=== PATIENT | female | born 1970 | race African-American/Black ===

== ENCOUNTER → 2020-04-24 09:02 | Outpatient (BNVA) | payer OTHER, SELFPAY | PROVIDERS: Visit Provider Internal Medicine Gastroenterology | DX: Z76.89 Persons encountering health services in other specified circumstances (principal) ==

== ENCOUNTER 2020-05-18 08:00 | Outpatient (REF) | payer OTHER, SELFPAY ==
[2020-05-23 19:21] LABS: HPV mRNA E6/E7 rflx Not Detected (Not Detected)
== END 2020-05-18 08:01 | disposition home or self-care (01) ==
LOC: HO.LAB 08:00
PROVIDERS: PCP Internal Medicine; Referring Provider Internal Medicine; Visit Provider Obstetrics & Gynecology
DX: Z01.419 Encounter for gynecological examination (general) (routine) without abnormal findings (principal); Z78.0 Asymptomatic menopausal state; Z13.820 Encounter for screening for osteoporosis
CPT/HCPCS: 87624; 87625; 88142

== ENCOUNTER 2020-05-19 08:02 | Outpatient (REF) | payer OTHER, SELFPAY ==
--- NOTE | 2020-05-19 08:08 | MM_ITS ---
EXAMINATION: MM SCREENING DIGITAL BREAST TOMOSYNTHESIS, BILATERAL CLINICAL INFORMATION: Screening. Asymptomatic. The lifetime risk of breast cancer based on the Tyrer-Cuzick Model is 5%. COMPARISON: Mammography: 10/30/2018, 10/24/2017 TECHNIQUE: Digital breast tomosynthesis is performed in both the craniocaudal and mediolateral oblique views along with computer-aided detection (CAD). Synthesized 2D images are generated from the tomosynthesis. FINDINGS: There are scattered areas of fibroglandular density (ACR BI-RADS breast composition Category b). Composition borders on heterogeneously dense. The parenchymal pattern is similar to prior studies. There is no significant mass or architectural abnormality. Again, there are numerous bilateral diffuse scattered punctate calcifications in each breast. The axilla and skin contours are unremarkable. No significant changes. MM/MM tomosynthesis screening BI IMPRESSION: No significant changes from prior studies. ASSESSMENT: BI-RADS 2: Benign RECOMMENDATION: Routine annual mammography screening. This patient's information was entered into a reminder system with a target due date for their next mammogram.
== END 2020-05-19 08:03 | disposition home or self-care (01) ==
LOC: HO.MAMMO 08:02
PROVIDERS: PCP Internal Medicine; Visit Provider Internal Medicine
DX: Z12.31 Encounter for screening mammogram for malignant neoplasm of breast (principal)
CPT/HCPCS: 77063; 77067

== ENCOUNTER 2020-05-26 08:07 | Outpatient (REF) | payer OTHER, SELFPAY ==
--- NOTE | 2020-05-26 08:12 | MM_ITS ---
EXAMINATION: BONE DENSITOMETRY CLINICAL INDICATION: Screening for osteoporosis. COMPARISON: This is the patient's baseline examination. TECHNIQUE: Using a [employer] DXA System (software version: 13.1) manufactured by [employer], dual-energy x-ray absorptiometry was performed of the lumbar spine and left hip. The images are of good technical quality. Summary results are attached. FINDINGS: AP SPINE L1-L4: BMD 0.987 g/cm2, Z-score -0.8, T-score -1.6, osteopenia. LEFT FEMUR, NECK: BMD 0.755 g/cm2, Z-score -1.0, T-score -2.0, osteopenia. LEFT FEMUR, TOTAL: BMD 0.831 g/cm2, Z-score -0.6, T-score -1.4, osteopenia. IDENTIFIED RISK FACTORS: Parental hip fracture. Secondary osteoporosis (intestinal or bowel disease). Glucocorticoids (chronic). Menopause. HISTORY OF FRACTURE: None listed. MEDICATIONS: Calcium supplement or multivitamin. Vitamin D. MM/XR DEXA axial skeleton IMPRESSION: 1. DIAGNOSIS: Osteopenia based on the lowest T-score value of -2.0 in the femoral neck applying World Health Organization criteria. 2. 10-YEAR FRACTURE RISK PREDICTION, FRAX: Major osteoporotic fracture (clinical spine, forearm, hip or shoulder) 8.7%. Hip fracture 0.8%. 3. Treatment Recommendations: NOF guidelines recommend consideration for treatment in postmenopausal women and men age 50 and older presenting with the following: -A hip or vertebral (clinical or morphometric) fracture. -T-score less than or equal to -2.5 at the femoral neck or spine after appropriate evaluation to exclude secondary causes. -Low bone mass at the hip or spine and a 10-year fracture probability by FRAX of greater than or equal to 3% for hip fracture or greater than or equal to 20% for major osteoporotic fracture based on the [place] adapted WHO algorithm. 4. Other Recommendations: All treatment decisions require clinical judgment and consideration of individual patient factors, including patient preferences, comorbidities, previous drug use, risk factors not captured in the FRAX model (e.g. frailty, falls, vitamin D deficiency, increased bone turnover, interval significant decline in bone density) and possible under or overestimation of fracture risk by FRAX. Additional medical evaluation for secondary cause of low bone mineral density may be appropriate. FUTURE SCAN RECOMMENDATION: People with diagnosed cases of osteoporosis or at high risk for fracture should have regular bone mineral density tests. For patients eligible for Medicare, routine testing is allowed once every 2 years. The testing frequency can be increased to one year for patients who have rapidly progressing disease, those who are receiving or discontinuing medical therapy to restore bone mass, or have additional risk factors.
== END 2020-05-26 08:08 | disposition home or self-care (01) ==
LOC: HO.MAMMO 08:07
PROVIDERS: PCP Internal Medicine; Visit Provider Obstetrics & Gynecology
DX: Z13.820 Encounter for screening for osteoporosis (principal)
CPT/HCPCS: 77080

== ENCOUNTER → 2020-06-15 15:16 | Outpatient (BNVA) | payer OTHER, SELFPAY | PROVIDERS: Visit Provider Obstetrics & Gynecology | DX: Z76.89 Persons encountering health services in other specified circumstances (principal) ==

== ENCOUNTER → 2020-08-23 11:23 | Outpatient (BNVA) | payer OTHER, SELFPAY | PROVIDERS: PCP Internal Medicine; Visit Provider Internal Medicine Gastroenterology ==

== ENCOUNTER 2020-11-04 09:03 | Outpatient (REF) | payer OTHER, SELFPAY ==
[2020-11-04 09:42] LABS: MANUAL DIFF FLAG NO
[2020-11-04 09:46] LABS: Basophils Percent Auto 0.3 % (0-2); Eosinophils Absolute Auto 0.1 X10*3/uL (0.0-0.4); Eosinophils Percent Auto 1.9 % (0-4); Hematocrit 43.1 % (37-47); Hemoglobin 13.5 g/dl (12.0-16.0); Imm Gran Abs Auto 0.02 X10*3/uL (0.00-0.03); Imm Gran Pct Auto 0.3 % (0.0-0.4); Lymphocytes Absolute Auto 1.4 X10*3/uL (1.2-4.9); Lymphocytes Percent Auto 21.2 % (20-40); Mean Corpuscular HGB Conc 31.3 g/dl (31.0-35.0); Mean Corpuscular Hemoglobin 26.9 pg (27.0-33.0); Mean Corpuscular Volume 85.9 fL (80-98); Mean Platelet Volume 9.6 fL (9.4-12.3); Monocytes Absolute Auto 0.7 X10*3/uL (0.1-1.2); Monocytes Percent Auto 11.3 % (2-11); Neutrophils Absolute Auto 4.2 X10*3/uL (2.0-8.3); Platelet Count 289 X10*3/uL (160-400); Red Blood Count 5.02 X10*6/uL (4.20-5.50); Red Cell Distribution Width 13.4 % (11.0-16.0); White Blood Count 6.4 X10*3/uL (4.8-10.8)
[2020-11-04 10:17] LABS: Alanine Aminotransferase 21 U/L (0-31); Albumin Level 4.1 g/dL (3.5-5.0); Alkaline Phosphatase 81 U/L (39-117); Anion Gap 14 (12-20); Aspartate Amino Transferase 17 U/L (5-31); Bilirubin Total 0.5 mg/dL (0.0-1.0); Blood Urea Nitrogen 12 mg/dL (9-16); Calcium 9.5 mg/dL (8.4-10.2); Carbon Dioxide 29 mmol/L (22-29); Chloride 105 mmol/L (96-108); Estimated Glomerular Filt Rate > 60; Glucose Fasting 97 mg/dL (60-99); Potassium 4.5 mmol/L (3.3-5.1); Sodium 143 mmol/L (135-145); Total Protein 6.8 g/dL (6.5-8.0)
[2020-11-04 10:40] LABS: Vitamin D 25-OH Total 43.9 ng/mL (>30)
== END 2020-11-04 09:04 | disposition home or self-care (01) ==
LOC: HO.LAB 09:03
PROVIDERS: PCP Internal Medicine; Visit Provider Internal Medicine Gastroenterology
DX: K51.90 Ulcerative colitis, unspecified, without complications (principal)
CPT/HCPCS: 36415; 80053; 82306; 85025; 86140

== ENCOUNTER 2020-11-09 17:30 | Outpatient (REF) | payer OTHER, SELFPAY | END 2020-11-09 17:31 | disposition home or self-care (01) | LOC: HO.LAB 17:30 | PROVIDERS: PCP Internal Medicine; Visit Provider Internal Medicine Gastroenterology | DX: Z13.89 Encounter for screening for other disorder (principal) ==

== ENCOUNTER 2020-11-13 11:41 | Outpatient (REF) | payer OTHER, SELFPAY ==
[2020-11-13 12:29] LABS: CDIFF Ag Negative (Negative); CDIFF Internal ctrl Dots and bkg OK (V); CDiff Toxin Negative (Negative)
== END 2020-11-13 11:42 | disposition home or self-care (01) ==
LOC: HO.LNP 11:41
PROVIDERS: Visit Provider Internal Medicine Gastroenterology
DX: K51.90 Ulcerative colitis, unspecified, without complications (principal); R19.7 Diarrhea, unspecified
CPT/HCPCS: 87324; 87449

== ENCOUNTER → 2021-04-26 08:12 | Outpatient (BNVA) | payer OTHER, SELFPAY | PROVIDERS: PCP Internal Medicine; Referring Provider Internal Medicine; Visit Provider Internal Medicine Gastroenterology ==

== ENCOUNTER 2021-08-16 15:36 | Outpatient (REF) | payer OTHER, SELFPAY ==
--- NOTE | ~2021-08-16 | XR_ITS ---
EXAMINATION: BILATERAL SHOULDER X-RAYS CLINICAL INFORMATION: Cervicalgia and shoulder pain COMPARISON: None TECHNIQUE: 3 views were acquired of both the right and left shoulder. FINDINGS: Examination of the right shoulder shows no fracture, dislocation or bone lesion. No significant degenerative or proliferative changes are evident. Examination of the left shoulder shows no plain film osseous, articular or soft tissue abnormalities. XR/XR shoulder LT min 2V IMPRESSION: Unremarkable plain radiographs of the left and right shoulders.
--- NOTE | ~2021-08-16 | XR_ITS ---
EXAMINATION: BILATERAL SHOULDER X-RAYS CLINICAL INFORMATION: Cervicalgia and shoulder pain COMPARISON: None TECHNIQUE: 3 views were acquired of both the right and left shoulder. FINDINGS: Examination of the right shoulder shows no fracture, dislocation or bone lesion. No significant degenerative or proliferative changes are evident. Examination of the left shoulder shows no plain film osseous, articular or soft tissue abnormalities. XR/XR shoulder RT min 2V IMPRESSION: Unremarkable plain radiographs of the left and right shoulders.
--- NOTE | ~2021-08-16 | XR_ITS ---
EXAMINATION: XR CERVICAL SPINE CLINICAL INFORMATION: Cervicalgia COMPARISON: None TECHNIQUE: Frontal, lateral and open-mouth views were acquired of the cervical spine. FINDINGS: There are no prevertebral soft tissue or bony abnormalities demonstrated. No compression fractures or subluxations are identified. Alignment is maintained at the atlanto-axial articulation. The disc spaces are preserved. No endplate changes are seen. The prevertebral soft tissues are normal. The foramina are patent. XR/XR cervical spine 3V IMPRESSION: Unremarkable plain radiographs of the cervical spine.
== END 2021-08-16 15:37 | disposition home or self-care (01) ==
LOC: HO.HMGCX 15:36
PROVIDERS: PCP Internal Medicine; Visit Provider Internal Medicine
DX: M54.2 Cervicalgia (principal); M25.512 Pain in left shoulder; M25.511 Pain in right shoulder
CPT/HCPCS: 72040; 73030

== ENCOUNTER 2021-09-10 11:52 | Emergency (ER) | payer OTHER, SELFPAY ==
--- NOTE | ~2021-09-10 | CT_ITS ---
EXAMINATION: CT ANGIOGRAM OF THE HEAD CT ANGIOGRAM OF THE NECK CLINICAL INFORMATION: Intermittent weakness and facial numbness. COMPARISON: CT scan of the head 10/20/2018. TECHNIQUE: A noncontrast axial CT scan of the head was obtained. Test bolus series followed by intravenous administration 70 mL of Omnipaque 350. Helical imaging was performed in the axial plane from the mediastinum to the skull vertex. A delayed post contrast CT head was also obtained. The degree of stenosis is based off NASCET criteria. The data was processed at the surgical technologist workstation for generation of MIP images. Three-dimensional volume rendered reformatted images were also generated at an offline 3-D workstation. This CT examination was performed using dose optimization techniques as appropriate, variously including the following: *Automated exposure control *Adjustment of mA and/or kV according to patient size (this includes techniques or standardized protocols for targeted exams where dose is matched to indication/reason for exam; i.e. extremities or head) *Use of iterative reconstruction technique DLP: 1983 mGy-cm. FINDINGS: CT Head: There is no evidence of acute intracranial hemorrhage or territorial infarction. No abnormal mass-effect or midline shift is seen. [place] to white matter differentiation is well preserved. No extra-axial fluid collections are identified. There is no abnormal enhancement. The ventricles are normal in size. There is no abnormal attenuation within the brain parenchyma. The osseous structures are unremarkable. There has been slight interval increase in a subcutaneous nodule in the anterior left frontal scalp, with coarse calcifications. The mastoid air cells and visualized portions of the paranasal sinuses are well-aerated. CTA Neck: There is a classic configuration of the arch of the aorta. The great vessels of the neck are widely patent. The subclavian arteries appear normal bilaterally. The common carotid arteries have normal caliber. The carotid bifurcations bilaterally appear normal. The internal carotid arteries in the neck bilaterally have uniform and normal caliber. The origins of both vertebral arteries are well seen and appear normal. Both vertebral arteries are widely patent and demonstrate good opacification throughout their cervical course. The vertebral arteries are codominant. Nonvascular: The visualized upper lung brooks are well-aerated. There is a 0.6 cm low-density nodule in the thyroid gland which is not clinically significant. There is no cervical lymphadenopathy; there are small lymph nodes at multiple levels in the neck bilaterally. There are no acute osseous findings. There is no significant spondylosis in the cervical spine. CTA Head: The intracranial internal carotid arteries in the cavernous sinuses appear normal. There is mild fullness at the infundibulum of the right ophthalmic nerve without a discrete aneurysm. There is minimal atheromatous calcification of the paraclinoid right internal carotid artery. The middle and anterior cerebral arteries bilaterally demonstrate normal caliber with no evidence of focal stenosis, aneurysm or vascular malformation. There is normal arborization of the middle cerebral artery branches. The anterior communicating artery is normal. In the posterior circulation, the vertebral arteries are codominant and have uniform caliber. The basilar artery appears normal. The posterior cerebral arteries have normal caliber. The venous sinuses opacify normally. CT/CT angio head neck IMPRESSION: 1. There are no acute bleeds or territorial infarcts. There are no intracranial masses or areas of abnormal enhancement. There has been slight interval increase in the size of a left frontal subcutaneous nodule. 2. There are no flow-limiting stenoses in the cervical vertebral arteries in the neck. 3. Intracranially there are no focal stenoses, aneurysms or vascular malformations.
[2021-09-10 11:57] VITALS: BP 140/79; PULSE 81; RESP 19; TEMP 36.6; O2SAT 98; BMI 19.7
[2021-09-10 12:14] LABS: MANUAL DIFF FLAG NO
[2021-09-10 12:16] LABS: Basophils Percent Auto 0.4 % (0-2); Eosinophils Absolute Auto 0.1 X10*3/uL (0.0-0.4); Eosinophils Percent Auto 2.2 % (0-4); Hematocrit 42.5 % (37.0-47.0); Hemoglobin 13.5 g/dl (12.0-16.0); Lymphocytes Absolute Auto 2.2 X10*3/uL (1.2-4.9); Lymphocytes Percent Auto 44.2 % (20-40); Mean Corpuscular HGB Conc 31.8 g/dl (31.0-35.0); Mean Platelet Volume 9.4 fL (9.4-12.3); Monocytes Absolute Auto 0.4 X10*3/uL (0.1-1.2); Monocytes Percent Auto 8.9 % (2-11); Neutrophils Absolute Auto 2.2 x10*3/uL (2.0-8.3); Neutrophils Percent Auto 44.3 % (45-73); Platelet Count 275 X10*3/uL (160-400); Red Cell Distribution Width 13.8 % (11.0-16.0)
[2021-09-10 12:20] LABS: Appearance Urine CLEAR; Color Urine YELLOW; Glucose Urine UA NEG (NEG); Leukocyte Esterase Urine 1+ (NEG); Nitrite Urine NEG (NEG); PH 7.5 (5.0-8.0); UACC Culture Trigger YES; UPreg QC Valid YES; Urine Blood NEG (NEG); Urine Ketones NEG (NEG); Urine Pregnancy NEGATIVE (NEGATIVE); Urine Protein NEG (NEG-TRACE)
[2021-09-10 12:27] LABS: Anion Gap 11 (12-20); Blood Urea Nitrogen 6 mg/dL (9-16); Calcium 9.6 mg/dL (8.4-10.2); Carbon Dioxide 30 mmol/L (22-29); Chloride 105 mmol/L (96-108); Creatinine Clr Calc Pharmacy 77.9; Estimated Glomerular Filt Rate > 60; Glucose Random 128 mg/dL (60-115); Potassium 3.7 mmol/L (3.3-5.1); Sodium 142 mmol/L (135-145)
[2021-09-10 13:11] LABS: Bacteria Urine TRACE /LPF; RBC Urine 0 /HPF (0); Squamous Epithelial Cell Urine 1+ /LPF
--- NOTE | 2021-09-10 16:41 | ED.GENADULT ---
HPI - General Adult General Chief complaint: General Medical Stated complaint: numbness on bottom lip/weakness Source: patient Mode of arrival: ambulatory Limitations: no limitations History of Present Illness HPI narrative: 51-year-old female presents with lower lip and chin numbness that started approximately an hour before her arrival, and has now resolved. She does report having a few episodes of weakness and numbness, where she felt like she could not move her arms appropriately over the past few days. She states she just feels off but cannot pinpoint exact symptoms. Onset (ago): day(s) Location: face, left, right and upper extremity Radiation: non-radiation Severity: mild Severity scale (1-10): 1 Relieving factors: none Exacerbating factors: none Treatments prior to arrival: none Related Data Previous Rx's Medication Instructions Recorded cholecalciferol (vitamin D3) 10 10 mcg PO DAILY 30 Days #30 cap 04/26/21 mcg (400 unit) capsule simethicone 80 mg chewable tablet 80 mg PO BID-QID PRN 30 Days #90 04/26/21 (Gas Relief (simethicone)) tab dicyclomine 10 mg capsule 10 - 20 mg PO QID 30 Days #120 cap 05/02/21 bisacodyl 5 mg tablet,delayed 5 mg PO ONCE 1 Days #2 tab 07/09/21 release (Dulcolax (bisacodyl)) polyethylene glycol 3350 17 17 g PO DAILY 1 Days #238 g 07/09/21 gram/dose oral powder (Miralax) mesalamine 1.2 gram tablet,delayed 4.8 g PO DAILY #360 tab 07/17/21 release methocarbamol 500 mg tablet 1,000 mg PO Q8H PRN #30 tab 08/16/21 meloxicam 15 mg tablet 15 mg PO DAILY PRN #30 tab 09/03/21 omeprazole 20 mg capsule,delayed 20 mg PO DAILY #30 cap 09/03/21 release nitrofurantoin 100 mg PO Q12H 7 Days #14 cap 09/10/21 monohydrate/macrocrystals 100 mg capsule (Macrobid) Allergies Allergy/AdvReac Type Severity Reaction Status Date / Time No Known Allergies Allergy Verified 09/03/21 14:10 [No Known Allergies*] Review of Systems Review of Systems: Constitutional: No Fever, No Chills ENT/Mouth: No Ear Pain, No Hoarseness, No sore throat Eyes: No Eye Pain, No Swelling, No Redness, No Foreign Body Cardiovascular: No Chest Pain, No SOB Respiratory: No Cough, No Dyspnea Gastrointestinal: No Nausea, No Vomiting, No Diarrhea, No abdominal Pain Genitourinary: No Dysuria, No Hematuria Musculoskeletal: No joint pain, No Myalgias, No Joint Swelling Skin: No Skin lacerations, No rash Neuro: Positive generalized Weakness, positive resolved facial Numbness, No Paresthesias, No Loss of Consciousness, No Dizziness, No Headache Psych: No Anxiety/Panic, No Depression Heme/Lymph: no easy bruising, no Lymphadenopathy Endocrine: No Polyuria, No Polydipsia Yes all other systems are reviewed and are negative PMFSH Past Medical History Attestation statement: The following information was validated with the patient. Source: old records reviewed Medical History ASCUS of cervix with negative high risk HPV Bilateral posterior neck pain Chronic right shoulder pain GERD (gastroesophageal reflux disease) Hx of iron deficiency Shoulder pain, bilateral Ulcerative colitis Surgical History History of esophagogastroduodenoscopy Hx of colonoscopy Hx of tubal ligation Family History Family History Father HTN (hypertension) Diabetes Mother Leukemia Melanoma Paternal Grandmother Colon polyps Social History Social History Household Members: Spouse Housing: House Alcohol intake: never Patient Tobacco Use Status: Never used Tobacco e-Cigarette/Vaping Use: Never Used Use of substances other than those prescribed or required for medical reasons: No Advance Directives: No Advance Directives Information Provided: No Patient : No service: No Current occupational status: employed Sexual orientation: Straight/Heterosexual Gender identity: Female Physical Exam ED Vital Signs: Vital Signs - 24 hr 09/10/21 11:57 09/10/21 17:06 09/10/21 18:52 Temperature 98 F 98.7 F Pulse Rate 81 84 72 Respiratory Rate 19 16 17 Blood Pressure 140/79 H 122/75 101/63 Pulse Oximetry 98 100 100 BMI result Body Mass Index 19.7 Appearance: Alert. Oriented X3. No acute distress. Head: Normal external exam. Normocephalic. Atraumatic. Eyes: PERRLA. EOMI. Conjunctiva and sclera normal. Eyelids normal. ENT: TM's Normal. Pharynx normal. Uvula midline. Moist mucous membranes. No trismus noted. No drooling noted. No muffled voice noted. Neck: Normal inspection. Neck supple. No adenopathy. No meningeal signs. CVS: Normal heart rate and rhythm. Heart sound normal. No murmurs noted. Pulses equal to all extremities. Respiratory: No respiratory distress. Painless inspiration. Breath sounds normal. No wheezes/rales/rhonchi noted. Chest nontender. No accessory muscle usage noted or decreased air movement noted. Abdomen: Soft and nontender. Bowel sounds normal in all 4 quadrants. No distention noted. No organomegaly noted. No visible injury noted. Back: No CVA tenderness. Full range of motion noted. Skin: Skin warm and dry. Normal skin color. Normal skin turgor. No rashes/lesions/lacerations noted. Extremities: No lower extremity edema. Extremities exhibit normal range of motion. Extremities nontender. Neuro: cranial nerves 2-12 intact, no focal neural deficits, strength 5/5 to all extremities, No motor deficit. No sensory deficit. NIH Stroke Scale Internal: Initial- Upon Arrival Level of Consciousness: Alert Level of Consciousness Questions: Answers both questions correctly Level of Consciousness Commands: Performs both tasks correctly Best Gaze: Normal Visual: No visual loss Facial Palsy: Normal Motor Arm (Right): No drift Motor Arm (Left): No drift Motor Leg (Right): No drift Motor Leg (Left): No drift Limb Ataxia: Absent Sensory: Normal Best Language: No aphasia Dysarthia: Normal Extinction and Inattention: No abnormality Score: 0 Course Course Course Narrative: 51-year-old female presents with resolved facial numbness that started approximately an hour prior to her arrival. Stated that she noted her right side of the lower lip and mentum becoming numb. Stated that the entire chin was numb. She does report having intermittent episodes of weakness this week which have resolved. States that she just does not feel right at this time. She has not traveled, is not immunocompromised, does not take any hormones, does not have any clotting factor deficiencies or liver disease, and does not have any history of prior CVA or stroke. She does have a family history of stroke, her maternal grandmother. She does report taking dicyclomine and meloxicam however had not taken the medications during her episodes of weakness and numbness. At this time will order CTA of head and neck to rule out CVA, and ACS workup. Labs drawn while she was in the emergency department waiting room, urinalysis is positive for leukocyte esterase. 19:19 CTA of head and neck are negative. Discussion with patient regarding plan of care to follow-up with primary care physician. Will treat for suspicion of UTI as there is an elevated leukocyte esterase.Patient verbalized understanding of and agrees to plan of care discharge home. Verbalized understanding of signs and symptoms indicating need for emergent intervention Medical Decision Making Differential Diagnosis Differential Diagnosis: CVA, ACS, viral syndrome, UTI Medical Records Medical records reviewed: Yes I reviewed the patient's medical records. Lab Data Lab results reviewed: Yes I reviewed the patient's lab results. Result diagrams: 09/10/21 12:08 09/10/21 12:08 Labs: Lab Results 09/10/21 09/10/21 09/10/21 Range/Units 12:06 12:06 12:08 WBC 5.0 (4.8-10.8) X10*3/uL RBC 5.00 (4.20-5.50) X10*6/uL Hgb 13.5 (12.0-16.0) g/dl Hct 42.5 (37.0-47.0) % MCV 85.0 (80.0-98.0) fL MCH 27.0 (27.0-33.0) pg MCHC 31.8 (31.0-35.0) g/dl RDW 13.8 (11.0-16.0) % Plt Count 275 (160-400) X10*3/uL MPV 9.4 (9.4-12.3) fL Immature Gran % (Auto) 0.0 (0.0-0.4) % Neut % (Auto) 44.3 L (45-73) % Lymph % (Auto) 44.2 H (20-40) % [place] % (Auto) 8.9 (2-11) % Eos % (Auto) 2.2 (0-4) % Baso % (Auto) 0.4 (0-2) % Lymph # (Auto) 2.2 (1.2-4.9) X10*3/uL [place] # (Auto) 0.4 (0.1-1.2) X10*3/uL Eos # (Auto) 0.1 (0.0-0.4) X10*3/uL Baso # (Auto) 0.0 (0.0-0.2) X10*3/uL Abs Immat Gran (auto) 0.00 (0.00-0.03) X10*3/uL Absolute Neuts (auto) 2.2 (2.0-8.3) x10*3/uL Absolute Nucleated RBC 0.000 (0.0-0.012) X10*3/uL Nucleated RBC % (auto) 0.0 (0.0-0.2) /100WBC Sodium (135-145) mmol/L Potassium (3.3-5.1) mmol/L Chloride (96-108) mmol/L Carbon Dioxide (22-29) mmol/L Anion Gap (12-20) BUN (9-16) mg/dL Creatinine (0.5-1.4) mg/dL Estim Creat Clear Calc Estimated GFR Random Glucose (60-115) mg/dL Calcium (8.4-10.2) mg/dL Troponin I High Sens (<3.5-17.0) ng/L Urine Color YELLOW Urine Appearance CLEAR Urine pH 7.5 (5.0-8.0) Ur Specific [place] 1.010 (1.005-1.025) Urine Protein NEG (NEG-TRACE) MG/DL Urine Glucose (UA) NEG (NEG) MG/DL Urine Ketones NEG (NEG) MG/DL Urine Blood NEG (NEG) Urine Nitrite NEG (NEG) Ur Leukocyte Esterase 1+ H (NEG) Urine RBC 0 (0) /HPF Urine WBC 1-4 (0-4) /HPF Ur Squamous Epith Cells 1+ /LPF Urine Bacteria TRACE /LPF Urine Test NEGATIVE (NEGATIVE) 09/10/21 09/10/21 Range/Units 12:08 18:51 WBC (4.8-10.8) X10*3/uL RBC (4.20-5.50) X10*6/uL Hgb (12.0-16.0) g/dl Hct (37.0-47.0) % MCV (80.0-98.0) fL MCH (27.0-33.0) pg MCHC (31.0-35.0) g/dl RDW (11.0-16.0) % Plt Count (160-400) X10*3/uL MPV (9.4-12.3) fL Immature Gran % (Auto) (0.0-0.4) % Neut % (Auto) (45-73) % Lymph % (Auto) (20-40) % [place] % (Auto) (2-11) % Eos % (Auto) (0-4) % Baso % (Auto) (0-2) % Lymph # (Auto) (1.2-4.9) X10*3/uL [place] # (Auto) (0.1-1.2) X10*3/uL Eos # (Auto) (0.0-0.4) X10*3/uL Baso # (Auto) (0.0-0.2) X10*3/uL Abs Immat Gran (auto) (0.00-0.03) X10*3/uL Absolute Neuts (auto) (2.0-8.3) x10*3/uL Absolute Nucleated RBC (0.0-0.012) X10*3/uL Nucleated RBC % (auto) (0.0-0.2) /100WBC Sodium 142 (135-145) mmol/L Potassium 3.7 (3.3-5.1) mmol/L Chloride 105 (96-108) mmol/L Carbon Dioxide 30 H (22-29) mmol/L Anion Gap 11 L (12-20) BUN 6 L (9-16) mg/dL Creatinine 0.66 (0.5-1.4) mg/dL Estim Creat Clear Calc 77.9 Estimated GFR > 60 Random Glucose 128 H (60-115) mg/dL Calcium 9.6 (8.4-10.2) mg/dL Troponin I High Sens < 3.5 (<3.5-17.0) ng/L Urine Color Urine Appearance Urine pH (5.0-8.0) Ur Specific [place] (1.005-1.025) Urine Protein (NEG-TRACE) MG/DL Urine Glucose (UA) (NEG) MG/DL Urine Ketones (NEG) MG/DL Urine Blood (NEG) Urine Nitrite (NEG) Ur Leukocyte Esterase (NEG) Urine RBC (0) /HPF Urine WBC (0-4) /HPF Ur Squamous Epith Cells /LPF Urine Bacteria /LPF Urine Test (NEGATIVE) Imaging Data CTA head neck: Attestation: I personally reviewed and interpreted this imaging study as follows: Radiologist's impression: EXAMINATION: CT ANGIOGRAM OF THE HEAD CT ANGIOGRAM OF THE NECK CLINICAL INFORMATION: Intermittent weakness and facial numbness. COMPARISON: CT scan of the head 10/20/2018. TECHNIQUE: A noncontrast axial CT scan of the head was obtained. Test bolus series followed by intravenous administration 70 mL of Omnipaque 350. Helical imaging was performed in the axial plane from the mediastinum to the skull vertex. A delayed post contrast CT head was also obtained. The degree of stenosis is based off NASCET criteria. The data was processed at the manufacturing engineering technologist workstation for generation of MIP images. Three-dimensional volume rendered reformatted images were also generated at an offline 3-D workstation. This CT examination was performed using dose optimization techniques as appropriate, variously including the following: *Automated exposure control *Adjustment of mA and/or kV according to patient size (this includes techniques or standardized protocols for targeted exams where dose is matched to indication/reason for exam; i.e. extremities or head) *Use of iterative reconstruction technique DLP: 1983 mGy-cm. FINDINGS: CT Head: There is no evidence of acute intracranial hemorrhage or territorial infarction. No abnormal mass-effect or midline shift is seen. [place] to white matter differentiation is well preserved. No extra-axial fluid collections are identified. There is no abnormal enhancement. The ventricles are normal in size. There is no abnormal attenuation within the brain parenchyma. The osseous structures are unremarkable. There has been slight interval increase in a subcutaneous nodule in the anterior left frontal scalp, with coarse calcifications. The mastoid air cells and visualized portions of the paranasal sinuses are well-aerated. CTA Neck: There is a classic configuration of the arch of the aorta. The great vessels of the neck are widely patent. The subclavian arteries appear normal bilaterally. The common carotid arteries have normal caliber. The carotid bifurcations bilaterally appear normal. The internal carotid arteries in the neck bilaterally have uniform and normal caliber. The origins of both vertebral arteries are well seen and appear normal. Both vertebral arteries are widely patent and demonstrate good opacification throughout their cervical course. The vertebral arteries are codominant. Nonvascular: The visualized upper lung brooks are well-aerated. There is a 0.6 cm low-density nodule in the thyroid gland which is not clinically significant. There is no cervical lymphadenopathy; there are small lymph nodes at multiple levels in the neck bilaterally. There are no acute osseous findings. There is no significant spondylosis in the cervical spine. CTA Head: The intracranial internal carotid arteries in the cavernous sinuses appear normal. There is mild fullness at the infundibulum of the right ophthalmic nerve without a discrete aneurysm. There is minimal atheromatous calcification of the paraclinoid right internal carotid artery. The middle and anterior cerebral arteries bilaterally demonstrate normal caliber with no evidence of focal stenosis, aneurysm or vascular malformation. There is normal arborization of the middle cerebral artery branches. The anterior communicating artery is normal. In the posterior circulation, the vertebral arteries are codominant and have uniform caliber. The basilar artery appears normal. The posterior cerebral arteries have normal caliber. The venous sinuses opacify normally. CT/CT angio head neck IMPRESSION: 1. There are no acute bleeds or territorial infarcts. There are no intracranial masses or areas of abnormal enhancement. There has been slight interval increase in the size of a left frontal subcutaneous nodule. ? 2. There are no flow-limiting stenoses in the cervical vertebral arteries in the neck. ? 3. Intracranially there are no focal stenoses, aneurysms or vascular malformations. ECG Data Attestation: I personally reviewed and interpreted this ECG as follows: Prior ECG tracings: available for review Interpretation: Vent. rate 72 BPM UT interval 140 ms QRS duration 80 ms QT/QTc 406/444 ms P-R-T axes 50 16 6 Normal sinus rhythm Normal ECG When compared with ECG of 20-OCT-2018 19:59, T wave inversion now evident in Inferior leads 10-SEP-2021 17:08:42 Discharge Plan Discharge Clinical Impression: Weakness, Facial numbness, UTI (urinary tract infection) Patient Disposition: Home, Self-Care Instructions: Urinary Tract Infection in Women (DC), Weakness (ED) Additional Instructions: You were evaluated for weakness and facial numbness. CT angio of head and neck are negative for acute findings requiring emergent intervention. Lab values were unremarkable. EKG was normal sinus rhythm, cardiac enzymes are negative. Please follow-up with primary care physician for further workup. Urinalysis shows an elevated leukocyte esterase, we are treating you for urinary tract infection with Macrobid. Please take Macrobid 100 mg twice a day for the next 7 days. Drink plenty of fluids. Thank you for choosing this emergency department for evaluation. Please follow-up with primary care physician as needed. Return to the emergency department for any new, concerning, or worsening symptoms. Prescriptions: New nitrofurantoin monohyd/m-cryst [Macrobid] 100 mg capsule 100 mg PO Q12H 7 Days Qty: 14 0RF Rx Instructions: must administer with a meal/food No Action dicyclomine 10 mg capsule 10 - 20 mg PO QID 30 Days Qty: 120 2RF bisacodyl [Dulcolax (bisacodyl)] 5 mg tablet,delayed release (DR/EC) 5 mg PO ONCE 1 Days Qty: 2 0RF Rx Instructions: Take 2 tablets at noon 1 day before colonoscopy. polyethylene glycol 3350 [Miralax] 17 gram/dose powder 17 g PO DAILY 1 Days Qty: 238 0RF Rx Instructions: Mix Miralax with 64 oz(8 cups) of Crystal light. Take 2 tablets of Dulcolax qt 12 pm. Wait to have your 1st bowel movement, then begin drinking Miralax. Drink a glass of Miralax every 10-15 minutes until you are finished. You will drink at least another 4 cups of clear liquid of your choice over the next 2 hours. Please drink as many clear liquids as possible You may have clear liquids up to four hours before your procedure mesalamine 1.2 gram tablet,delayed release (DR/EC) 4.8 g PO DAILY Qty: 360 1RF meloxicam 15 mg tablet 15 mg PO DAILY PRN (Reason: joint pain) Qty: 30 0RF omeprazole 20 mg capsule,delayed release(DR/EC) 20 mg PO DAILY Qty: 30 0RF methocarbamol 500 mg tablet 1,000 mg PO Q8H PRN (Reason: painful muscle spasm) Qty: 30 0RF cholecalciferol (vitamin D3) 10 mcg (400 unit) capsule 10 mcg PO DAILY 30 Days Qty: 30 3RF simethicone [Gas Relief (simethicone)] 80 mg tablet,chewable 80 mg PO BID-QID PRN (Reason: abdominal distention) 30 Days Qty: 90 1RF Referrals: Melissa De La Torre MD [Primary Care Provider] - 2 days (UTI, weakness) Interventions: ED Discharge Assessment Last Done: 09/10/21 19:44 Discharge Date/Time: 09/10/21 19:46
--- NOTE | 2021-09-10 17:00 | ECG_ITS ---
Test Reason : WEAKNESS Blood Pressure : / mmHG Vent. Rate : 072 BPM Atrial Rate : 072 BPM P-R Int : 140 ms QRS Dur : 080 ms QT Int : 406 ms P-R-T Axes : 050 016 006 degrees QTc Int : 444 ms Normal sinus rhythm Normal ECG When compared with ECG of 20-OCT-2018 19:59, T wave inversion now evident in Inferior leads Referred By: Cira Portillo Electronically Signed By:HÉCTOR ANTHONY MD
[2021-09-10 17:06] VITALS: BP 122/75; PULSE 84; RESP 16; TEMP 37.1; O2SAT 100
--- NOTE | 2021-09-10 17:10 | PC.NURSE ---
pt a&ox3, vss, pt reports that numbness in face has resolved - weakness is improving, 20G IV placed L AC, pending CT. will continue to monitor.
[2021-09-10] MEDS: iohexoL 350 MG/ML 100 ML INFUS..BTL IV (17:38)
[2021-09-10 18:52] VITALS: BP 101/63; PULSE 72; RESP 17; O2SAT 100
[2021-09-10 19:16] LABS: Troponin-I High Sensitivity < 3.5 ng/L (<3.5-17.0)
[2021-09-10] MEDS: Nitrofurantoin Monohyd/M-Cryst 100 MG CAPSULE PO (19:40)
--- NOTE | 2021-09-10 19:40 | PC.NURSE ---
medicated per provider order.
== END 2021-09-10 19:46 | disposition home or self-care (01) ==
PROVIDERS: Nurse Practitioner Family; Emergency Provider Internal Medicine; PCP Internal Medicine
DX: R53.1 Weakness (principal); R20.0 Anesthesia of skin; N39.0 Urinary tract infection, site not specified
CPT/HCPCS: 36415; 70496; 70498; 80048; 81001; 81025; 84484; 85025; 87086; 93005; 99284; Q9967

== ENCOUNTER 2021-10-12 15:49 | Outpatient (REF) | payer OTHER, SELFPAY ==
[2021-10-12 16:10] LABS: MANUAL DIFF FLAG NO
[2021-10-12 16:17] LABS: Basophils Percent Auto 0.4 % (0-2); Eosinophils Absolute Auto 0.1 X10*3/uL (0.0-0.4); Eosinophils Percent Auto 1.6 % (0-4); Hematocrit 39.4 % (37.0-47.0); Hemoglobin 12.4 g/dl (12.0-16.0); Imm Gran Abs Auto 0.02 X10*3/uL (0.00-0.03); Imm Gran Pct Auto 0.3 % (0.0-0.4); Lymphocytes Absolute Auto 1.9 X10*3/uL (1.2-4.9); Mean Corpuscular HGB Conc 31.5 g/dl (31.0-35.0); Mean Corpuscular Hemoglobin 27.6 pg (27.0-33.0); Mean Corpuscular Volume 87.6 fL (80.0-98.0); Mean Platelet Volume 9.2 fL (9.4-12.3); Monocytes Absolute Auto 0.7 X10*3/uL (0.1-1.2); Monocytes Percent Auto 9.6 % (2-11); Neutrophils Absolute Auto 4.6 x10*3/uL (2.0-8.3); Neutrophils Percent Auto 62.1 % (45-73); Platelet Count 306 X10*3/uL (160-400); Red Cell Distribution Width 13.5 % (11.0-16.0); White Blood Count 7.4 X10*3/uL (4.8-10.8)
[2021-10-12 16:52] LABS: Alanine Aminotransferase 142 U/L (0-31); Albumin Level 4.3 g/dL (3.5-5.0); Alkaline Phosphatase 121 U/L (39-117); Anion Gap 12 (12-20); Aspartate Amino Transferase 53 U/L (5-31); Bilirubin Total 0.5 mg/dL (0.0-1.0); Blood Urea Nitrogen 7 mg/dL (9-16); Calcium 9.5 mg/dL (8.4-10.2); Carbon Dioxide 31 mmol/L (22-29); Chloride 104 mmol/L (96-108); Estimated Glomerular Filt Rate > 60; Glucose Random 96 mg/dL (60-115); Potassium 3.9 mmol/L (3.3-5.1); Sodium 143 mmol/L (135-145); Total Protein 7.2 g/dL (6.5-8.0)
[2021-10-15 04:04] LABS: ~Hepatitis B Surface Antibody NONREACTIVE (Nonreactive)
[2021-10-15 04:18] LABS: HBsAGNum1 0.16 S/CO (0.00-0.99); Hepatitis B Surface Antigen Negative (Negative)
[2021-10-17 04:15] LABS: Hepatitis A Antibody IgG Nonreactive (Nonreactive); ~Hepatitis A Antibody IgG 0.39 S/CO (0.00-0.99)
== END 2021-10-12 15:50 | disposition home or self-care (01) ==
LOC: HO.LAB 15:49
PROVIDERS: PCP Internal Medicine; Visit Provider Internal Medicine Gastroenterology
DX: K51.90 Ulcerative colitis, unspecified, without complications (principal)
CPT/HCPCS: 36415; 80053; 85025; 86140; 86706; 86708; 87340

== ENCOUNTER 2021-10-16 08:31 | Outpatient (REF) | payer OTHER, SELFPAY ==
[2021-10-19 10:57] LABS: HPV mRNA E6/E7 rflx Not Detected (Not Detected)
== END 2021-10-16 08:32 | disposition home or self-care (01) ==
LOC: HO.LAB 08:31
PROVIDERS: PCP Internal Medicine; Visit Provider Advanced Practice Midwife
DX: Z01.419 Encounter for gynecological examination (general) (routine) without abnormal findings (principal); Z11.51 Encounter for screening for human papillomavirus (HPV); Z98.51 Tubal ligation status
CPT/HCPCS: 81003; 87624; 88142

== ENCOUNTER 2021-10-25 16:11 | Outpatient (REF) | payer OTHER, SELFPAY ==
--- NOTE | ~2021-10-25 | MM_ITS ---
EXAMINATION: MM SCREENING DIGITAL BREAST TOMOSYNTHESIS, BILATERAL CLINICAL INFORMATION: Screening. Asymptomatic. The lifetime risk of breast cancer based on the Tyrer-Cuzick Model is 1.5%. COMPARISON: Mammography: May 19, 2020 and studies dating back to April 05, 2015 TECHNIQUE: Digital breast tomosynthesis is performed in both the craniocaudal and mediolateral oblique views along with computer-aided detection (CAD). Synthesized 2D images are generated from the tomosynthesis. FINDINGS: The breasts are heterogeneously dense, which may obscure small masses (ACR BI-RADS breast composition Category c). There are no significant masses, abnormal calcifications, or other abnormalities. MM/MM tomosynthesis screening BI IMPRESSION: There are no significant changes from prior study. ASSESSMENT: BI-RADS 1: Negative RECOMMENDATION: Routine annual mammography screening. This patient's information was entered into a reminder system with a target due date for their next mammogram.
== END 2021-10-25 16:12 | disposition home or self-care (01) ==
LOC: HO.MAMMO 16:11
PROVIDERS: Visit Provider Advanced Practice Midwife
DX: Z12.31 Encounter for screening mammogram for malignant neoplasm of breast (principal)
CPT/HCPCS: 77063; 77067

== ENCOUNTER 2021-11-12 09:34 | Day surgery (SDC) | payer OTHER, SELFPAY ==
[2021-11-12 09:44] VITALS: BP 110/64; PULSE 82; RESP 18; TEMP 36.1; O2SAT 99; BMI 19.3
--- NOTE | 2021-11-12 10:25 | MHC.SHP ---
Pre-Procedural Eval Section A Date of Service: 11/12/21 Section B Chief Complaint: IBS Relevant Family History (Specify if Yes): Yes Relevant Social History: None Present Medications: see Short Stay Collaborative assessment Medical History: Significant History (ASCUS of cervix with negative high risk HPV GERD (gastroesophageal reflux disease) Hx of iron deficiency Ulcerative colitis) History of Previous Operations: Relevant previous surgery/procedure and date(s) (History of esophagogastroduodenoscopy Hx of colonoscopy Hx of tubal ligation) Allergies: Allergies Allergy/AdvReac Type Severity Reaction Status Date / Time No Known Allergies Allergy Verified 10/16/21 08:36 [No Known Allergies*] Review of Systems Sugical H&P ROS: Negative: Constitution, Cardiovascular, Respiratory and Gastrointestinal Exam Surgical H&P Exam: Normal: Heart, Normal: Lungs, Normal: Extremities and Normal: Abdomen Plan Diagnosis/Plan: Unchanged I have reviewed the history and physical and performed a pertinent physical examination on my patient. No changes have occurred unless specified.
--- NOTE | 2021-11-12 10:34 | P.CONAN_ITS ---
[facility] Active Problems Active Problems: All Active Problems (Updated 10/16/21 @ 08:59 by Petey Barker) Encounter for screening mammogram for malignant neoplasm of breast (Acute) Encounter for annual routine gynecological examination (Acute) Elevated LFTs (Acute) Chronic right shoulder pain (Acute) Bilateral posterior neck pain (Acute) Lactose intolerance (Acute) Abdominal bloating (Acute) IBS (irritable bowel syndrome) (Acute) Osteopenia (Acute) ASCUS of cervix with negative high risk HPV (Acute) Osteoporosis screening (Acute) Well woman exam (Acute) Hx of iron deficiency (Acute) GERD (gastroesophageal reflux disease) (Acute) Ulcerative colitis (Acute) Past Medical History Medical History Bilateral posterior neck pain Chronic right shoulder pain GERD (gastroesophageal reflux disease) Hx of abnormal cervical Pap smear Hx of iron deficiency Shoulder pain, bilateral Ulcerative colitis Family History Family History Father HTN (hypertension) Diabetes Mother Leukemia Melanoma Paternal Grandmother Colon polyps Family history of problems with anesthesia: No Surgical History Surgical History History of esophagogastroduodenoscopy Hx of colonoscopy Hx of tubal ligation History of Problems with Anesthesia: No Social History Social History Household Members: Spouse Housing: House Alcohol intake: never Patient Tobacco Use Status: Never used Tobacco e-Cigarette/Vaping Use: Never Used Are you DNR?: No Advance Directives: No Advance Directives Information Provided: Yes Nutrition Risks: No Nutritional Risk Patient : No service: No Current occupational status: employed 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 Sexual orientation: Straight/Heterosexual Gender identity: Female Meds Allergies Allergy/AdvReac Type Severity Reaction Status Date / Time No Known Allergies Allergy Verified 10/16/21 08:36 [No Known Allergies*] Home Medications Medication Instructions Recorded Confirmed Last Taken Type calcium carbonate 600 mg calcium 600 mg PO DAILY 10/16/21 Unknown History (1,500 mg) tablet (Calcium) collagen,hydrolysate 500 mg-biotin cap PO 10/16/21 Unknown History 800 mcg-ascorbic acid 50 mg capsule multivitamin 1 tab PO DAILY 10/16/21 Unknown History Exam Exam Date and Time: November 12, 2021 1034 Height,Weight and Vital Signs: Height 5 ft 2 in Weight 48.081 kg Last Vital Signs Temp 97 F 11/12/21 09:44 Pulse 82 11/12/21 09:44 Resp 18 11/12/21 09:44 BP 110/64 11/12/21 09:44 Pulse Ox 99 11/12/21 09:44 Airway Mallampati Class: II TM Dist: >3cm Neck ROM: Full Heart: rrr Lungs: cts Assessment and Plan Assessment Anesthesia Assessment: Anesthesia Plan Discussed and Chart Reviewed Final Anesthetic Review Family History of Problems with Anesthesia: No History of Problems with Anesthesia: No NPO: Yes ASA Class: II Final Preanesthetic Review: No Changes in Pt Med Stat, Meds/Allgs Chart Reviewed and Consent Obtained/Reviewed Patient Risk: Intermediate Procedure Risk: Intermediate Anesthetic Plan Anesthetic Plan: MAC: Disposition: Standard PACU
[2021-11-12] MEDS: Lactated Ringers 1,000 ML 50 ML IVCONT (10:40)
--- NOTE | 2021-11-12 10:49 | P.BOP_ITS ---
Brief Operative Note Date of Service: 11/12/21 Pre-op diagnosis: Colon cancer screening, ulcerative colitis Post-op diagnosis: other (Colon polyps, diverticulosis) Procedure: COLONOSCOPY TILL CECUM WITH BIOPSIES, SNARE POLYPECTOMY AND SUBMUCOSAL INJECTION Consent: Indications for the procedure and potential complications of bleeding, perforation, reaction to medications and missed diagnosis were discussed with the patient and informed consent was obtained. Instrument: Olympus PCF H 190 L variable stiffness pediatric colonoscope Monitoring: Vital signs and clinical assessment, intermittent blood pressure monitoring, continuous EKG monitoring, Pulse oximetry and Carbon Dioxide monitoring were done throughout the procedure. Colon withdrawl time was 32 minutes. Procedure: The patient was placed in the left lateral decubitis position and pre-procedure medications were administered. After a digital rectal examination of the ano-rectum, the video colonoscope was inserted into the rectum and advanced through the colon to the cecum. The colonoscope was slowly withdrawn in a retrograde panoramic fashion and the colon mucosa was carefully examined including a retroflexed view of the rectum. Findings and interventions are described below. Procedure Difficulty: Without difficulty - colon was long and tortuous and there was some loop formation Findings: Terminal Ileum: Distal 5 cm was examined and appeared normal Cecum: Normal Ascending Colon: A 5-6 mm diminutive appearing polyp in the distal descending colon -removed with the cold biopsy Transverse Colon: A 10 - 12 mm flat polyp raised with the 2 cc of normal saline and removed with a hot snare. Descending Colon: Normal Sigmoid Colon: Moderate diverticulosis Rectum: Normal Ano-rectum: Normal Colon preparation: Good after some irrigation Impression and Post Procedure Diagnosis: Colonoscopy Findings: One small and one mediums sized polyps removed Surveillance biopsies were obtained from the colon. Moderate diverticulosis seen in the sigmoid colon Plan: Await pathology results Patient has an appointment on 11/22/21 in the GI Clinic with Brad Napoles M.D.. Repeat Colonoscopy interval based on path results - in 2-3 years if polyps are adenomatous and if no dysplasia on surveillance biopsies of the colon. Above findings were reviewed with the patient and colon polyps and diverticulosis handouts were given in the discharge area Surgeon: Brad Napoles MD Anesthesia: MAC (Dr Ann) Was an Manager Of Corporate Communications used for this Procedure?: Yes Manager Of Corporate Communications: Elvia Maxwell Estimated blood loss (mL): 0 Pathology: other (A. cecum bxs, R/O ulcerative colitis B. colon bxs at 60 cm and 70 cm, R/O dysplasia C. ascending colon polyp D. transverse colon polyp E. colon bxs at 40 cm and 50 cm, R/O dysplasia ) Condition: stable Disposition: PACU
[2021-11-12 11:36] VITALS: BP 101/58; PULSE 76; RESP 16; TEMP 36.6; O2SAT 100
--- NOTE | 2021-11-12 11:38 | P.OP_ITS ---
Operative Note Operative Note Date of Service: 11/12/21 Narrative: Pre-op diagnosis: Colon cancer screening, ulcerative colitis Post-op diagnosis:?other (Colon polyps, diverticulosis) Procedure: COLONOSCOPY TILL CECUM WITH BIOPSIES, SNARE POLYPECTOMY AND SUBMUCOSAL INJECTION Consent: Indications for the procedure and potential complications of bleeding, perforation, reaction to medications and missed diagnosis were discussed with the patient and informed consent was obtained. Instrument: Olympus PCF H 190 L variable stiffness pediatric colonoscope Monitoring: Vital signs and clinical assessment, intermittent blood pressure monitoring, continuous EKG monitoring, Pulse oximetry and Carbon Dioxide monitoring were done throughout the procedure. Colon withdrawl time was 32 minutes. Procedure: The patient was placed in the left lateral decubitis position and pre-procedure medications were administered. After a digital rectal examination of the ano-rectum, the video colonoscope was inserted into the rectum and advanced through the colon to the cecum. The colonoscope was slowly withdrawn in a retrograde panoramic fashion and the colon mucosa was carefully examined including a retroflexed view of the rectum. Findings and interventions are described below. Procedure Difficulty: Without difficulty - colon was long and tortuous and there was some loop formation Findings: Terminal Ileum:? Distal 5 cm was examined and appeared normal Cecum:? Normal Ascending Colon: A 5-6 mm diminutive appearing polyp in the distal descending colon -removed with the cold biopsy Transverse Colon:? A 10 - 12 mm flat polyp raised with the 2 cc of normal saline and removed with a hot snare. Descending Colon:? Normal Sigmoid Colon:? Moderate diverticulosis Rectum:? Normal Ano-rectum:? Normal Colon preparation:? Good after some irrigation Impression and Post Procedure Diagnosis: Colonoscopy Findings: One small and one mediums sized polyps removed Surveillance biopsies were obtained from the colon. Moderate diverticulosis seen in the sigmoid colon Plan: Await pathology results Patient has an appointment on 11/22/21 in the GI Clinic with?Brad Napoles M.D.. Repeat Colonoscopy interval based on path results - in 2-3 years if polyps are adenomatous and if no dysplasia on surveillance biopsies of the colon. Above findings were reviewed with the patient and colon polyps and diverticulosis handouts were given in the discharge area Surgeon: Brad Napoles MD Anesthesia:?MAC (Dr Ann) Was an Twisting Operator used for this Procedure?:?Yes Twisting Operator:?lEvia Maxwell Estimated blood loss (mL):?0 Pathology:?other (A. cecum bxs, R/O ulcerative colitis? B. colon bxs at 60 cm and 70 cm, R/O dysplasia? C. ascending colon polyp? D. transverse colon polyp? E. colon bxs at 40 cm and 50 cm, R/O dysplasia ? ) Condition:?stable Disposition:?PACU
[2021-11-12 11:51] VITALS: BP 108/62; PULSE 64; RESP 18; O2SAT 100
[2021-11-12 12:06] VITALS: BP 108/56; PULSE 68; RESP 18; TEMP 36.6; O2SAT 98
== END 2021-11-12 12:20 | disposition home or self-care (01) ==
PROVIDERS: PCP Internal Medicine; Visit Provider Internal Medicine Gastroenterology
PROC: 0DJD8ZZ Inspection of Lower Intestinal Tract, Via Natural or Artificial Opening Endoscopic (ICD-10-PCS; CPT 45378; principal; 2021-11-12 11:10)
DX: Z12.11 Encounter for screening for malignant neoplasm of colon (principal); K63.5 Polyp of colon; K57.30 Diverticulosis of large intestine without perforation or abscess without bleeding; K51.90 Ulcerative colitis, unspecified, without complications; K21.9 Gastro-esophageal reflux disease without esophagitis; E73.9 Lactose intolerance, unspecified; Z79.899 Other long term (current) drug therapy; Z86.39 Personal history of other endocrine, nutritional and metabolic disease
CPT/HCPCS: 45385; 45380; 45381; 88305

== ENCOUNTER → 2021-11-21 08:04 | Outpatient (BNVA) | payer OTHER, SELFPAY | PROVIDERS: PCP Internal Medicine; Visit Provider Physician Assistant | DX: M89.8X1 Other specified disorders of bone, shoulder (principal) ==

== ENCOUNTER 2021-11-22 11:09 | Outpatient (REF) | payer OTHER, SELFPAY ==
[2021-11-22 12:48] LABS: MANUAL DIFF FLAG NO
[2021-11-22 13:36] LABS: Basophils Percent Auto 0.7 % (0-2); Eosinophils Absolute Auto 0.3 X10*3/uL (0.0-0.4); Eosinophils Percent Auto 5.5 % (0-4); Hematocrit 43.1 % (37.0-47.0); Hemoglobin 13.6 g/dl (12.0-16.0); Imm Gran Abs Auto 0.02 X10*3/uL (0.00-0.03); Imm Gran Pct Auto 0.3 % (0.0-0.4); Lymphocytes Absolute Auto 2.2 X10*3/uL (1.2-4.9); Lymphocytes Percent Auto 37.9 % (20-40); Mean Corpuscular HGB Conc 31.6 g/dl (31.0-35.0); Mean Corpuscular Hemoglobin 27.1 pg (27.0-33.0); Monocytes Absolute Auto 0.5 X10*3/uL (0.1-1.2); Monocytes Percent Auto 8.2 % (2-11); Neutrophils Absolute Auto 2.8 x10*3/uL (2.0-8.3); Neutrophils Percent Auto 47.4 % (45-73); Platelet Count 328 X10*3/uL (160-400); Red Blood Count 5.01 X10*6/uL (4.20-5.50); Red Cell Distribution Width 13.7 % (11.0-16.0); White Blood Count 5.9 X10*3/uL (4.8-10.8)
[2021-11-22 13:47] LABS: Prothrombin Time 11.5 SEC (9.9-13.0)
[2021-11-22 14:20] LABS: Alanine Aminotransferase 41 U/L (0-31); Albumin Level 4.3 g/dL (3.5-5.0); Alkaline Phosphatase 86 U/L (39-117); Aspartate Amino Transferase 25 U/L (5-31); Bilirubin Direct 0.2 mg/dL (0.0-0.5); Bilirubin Total 0.5 mg/dL (0.0-1.0); Estimated Glomerular Filt Rate > 60; Total Protein 7.2 g/dL (6.5-8.0)
[2021-11-22 14:52] LABS: Folate 9.3 ng/mL (> or = 4.0); Vitamin B12 286 pg/mL (200-900)
[2021-11-22 14:53] LABS: Color Urine YELLOW; Glucose Urine UA NEG (NEG); Leukocyte Esterase Urine 3+ (NEG); Nitrite Urine NEG (NEG); PH 7.5 (5.0-8.0); UACC Culture Trigger YES; Urine Blood NEG (NEG); Urine Ketones NEG (NEG); Urine Protein NEG (NEG-TRACE)
[2021-11-22 14:54] LABS: Appearance Urine HAZY
[2021-11-22 15:39] LABS: Bacteria Urine 1+ /LPF; RBC Urine 0 /HPF (0)
[2021-11-23 05:08] LABS: HBS Num1 1.09 mIU/mL (0-7.99); HBsAGNum1 0.13 S/CO (0.00-0.99); Hepatitis B Surface Antigen Negative (Negative); ~HepC Num1 0.09 S/CO (0.00-0.79); ~Hepatitis B Surface Antibody NONREACTIVE (Nonreactive); ~Hepatitis C Antibody Nonreactive (Nonreactive)
[2021-11-23 05:14] LABS: Hepatitis A Antibody IgG Nonreactive (Nonreactive); ~Hepatitis A Antibody IgG 0.26 S/CO (0.00-0.99)
== END 2021-11-22 11:10 | disposition home or self-care (01) ==
LOC: HO.LAB 11:09
PROVIDERS: PCP Internal Medicine; Visit Provider Internal Medicine Gastroenterology
DX: K21.9 Gastro-esophageal reflux disease without esophagitis (principal); K51.90 Ulcerative colitis, unspecified, without complications; R10.9 Unspecified abdominal pain; R79.89 Other specified abnormal findings of blood chemistry; Z86.39 Personal history of other endocrine, nutritional and metabolic disease
CPT/HCPCS: 36415; 80076; 81001; 81335; 82565; 82607; 82746; 85025; 85610; 86706; 86708; 86803; 87086; 87147; 87340

== ENCOUNTER 2021-11-28 08:54 | Outpatient (REF) | payer OTHER, SELFPAY ==
--- NOTE | ~2021-11-28 | US_ITS ---
EXAMINATION: US RETROPERITONEAL LIMITED (RENAL ONLY) CLINICAL INFORMATION: Bilateral flank pain. COMPARISON: MR abdomen dated from 03/17/2020. TECHNIQUE: Real-time imaging of the kidneys. FINDINGS: RIGHT KIDNEY: 10.3 x 4.4 x 5.0 cm (SAG x AP x TRV). The kidney is normal in size, contour, and echogenicity. Renal cortical thickness is normal. No calculi or focal parenchymal lesions. No hydronephrosis. LEFT KIDNEY: 9.9 x 5.2 x 5.5 cm (SAG x AP x TRV). The kidney is normal in size, contour, and echogenicity. Renal cortical thickness is normal. No calculi or focal parenchymal lesions. No hydronephrosis. US/US renal BI IMPRESSION: No hydronephrosis or nephrolithiasis.
== END 2021-11-28 08:55 | disposition home or self-care (01) ==
LOC: HO.HMGCX 08:54
PROVIDERS: Visit Provider Internal Medicine Gastroenterology
DX: R79.89 Other specified abnormal findings of blood chemistry (principal)
CPT/HCPCS: 76775

== ENCOUNTER 2022-03-04 09:43 | Outpatient (REF) | payer OTHER, SELFPAY ==
[2022-03-04 09:55] LABS: MANUAL DIFF FLAG NO
[2022-03-04 10:38] LABS: Basophils Percent Auto 0.5 % (0-2); Eosinophils Absolute Auto 0.2 X10*3/uL (0.0-0.4); Eosinophils Percent Auto 3.3 % (0-4); Hematocrit 43.7 % (37.0-47.0); Hemoglobin 13.8 g/dl (12.0-16.0); Imm Gran Abs Auto 0.02 X10*3/uL (0.00-0.03); Imm Gran Pct Auto 0.4 % (0.0-0.4); Lymphocytes Absolute Auto 1.9 X10*3/uL (1.2-4.9); Lymphocytes Percent Auto 34.1 % (20-40); Mean Corpuscular HGB Conc 31.6 g/dl (31.0-35.0); Mean Corpuscular Hemoglobin 26.1 pg (27.0-33.0); Mean Corpuscular Volume 82.6 fL (80.0-98.0); Mean Platelet Volume 9.9 fL (9.4-12.3); Monocytes Absolute Auto 0.7 X10*3/uL (0.1-1.2); Monocytes Percent Auto 12.3 % (2-11); Neutrophils Absolute Auto 2.8 x10*3/uL (2.0-8.3); Neutrophils Percent Auto 49.4 % (45-73); Platelet Count 328 X10*3/uL (160-400); Red Blood Count 5.29 X10*6/uL (4.20-5.50); Red Cell Distribution Width 13.6 % (11.0-16.0); White Blood Count 5.7 X10*3/uL (4.8-10.8)
[2022-03-04 11:17] LABS: Alanine Aminotransferase 16 U/L (0-31); Albumin Level 4.2 g/dL (3.5-5.0); Alkaline Phosphatase 76 U/L (39-117); Anion Gap 14 (12-20); Aspartate Amino Transferase 16 U/L (5-31); Bilirubin Total 0.6 mg/dL (0.0-1.0); Blood Urea Nitrogen 7 mg/dL (9-16); C Reactive Protein 1.15 mg/dL (< or = 0.50); Calcium 9.8 mg/dL (8.4-10.2); Carbon Dioxide 30 mmol/L (22-29); Chloride 102 mmol/L (96-108); Estimated Glomerular Filt Rate > 60; Glucose Random 90 mg/dL (60-115); Sodium 142 mmol/L (135-145); Total Protein 7.2 g/dL (6.5-8.0)
== END 2022-03-04 09:44 | disposition home or self-care (01) ==
LOC: HO.LAB 09:43
PROVIDERS: PCP Internal Medicine; Visit Provider Internal Medicine Gastroenterology
DX: K51.90 Ulcerative colitis, unspecified, without complications (principal)
CPT/HCPCS: 36415; 80053; 81479; 82397; 83520; 85025; 86140; 88346; 88350

== ENCOUNTER 2022-03-08 13:50 | Outpatient (REF) | payer OTHER, SELFPAY ==
[2022-03-08 14:18] LABS: Binax Internal Control QC Valid; Binax Now Covid-19 Ag Negative (Negative)
== END 2022-03-08 13:51 | disposition home or self-care (01) ==
LOC: HO.HMGCLDS 13:50
PROVIDERS: PCP Internal Medicine
DX: Z20.822 Contact with and (suspected) exposure to COVID-19 (principal); J02.9 Acute pharyngitis, unspecified
CPT/HCPCS: 87811; C9803

== ENCOUNTER 2022-04-29 08:28 | Outpatient (REF) | payer OTHER, SELFPAY ==
[2022-04-29 08:37] LABS: MANUAL DIFF FLAG NO
[2022-04-29 08:51] LABS: Basophils Percent Auto 0.6 % (0-2); Eosinophils Absolute Auto 0.4 X10*3/uL (0.0-0.4); Eosinophils Percent Auto 7.6 % (0-4); Hematocrit 38.7 % (37.0-47.0); Hemoglobin 12.1 g/dl (12.0-16.0); Imm Gran Abs Auto 0.01 X10*3/uL (0.00-0.03); Imm Gran Pct Auto 0.2 % (0.0-0.4); Lymphocytes Absolute Auto 1.6 X10*3/uL (1.2-4.9); Lymphocytes Percent Auto 33.3 % (20-40); Mean Corpuscular HGB Conc 31.3 g/dl (31.0-35.0); Mean Corpuscular Hemoglobin 25.5 pg (27.0-33.0); Mean Corpuscular Volume 81.6 fL (80.0-98.0); Mean Platelet Volume 9.1 fL (9.4-12.3); Monocytes Absolute Auto 0.6 X10*3/uL (0.1-1.2); Monocytes Percent Auto 12.3 % (2-11); Neutrophils Absolute Auto 2.2 x10*3/uL (2.0-8.3); Platelet Count 317 X10*3/uL (160-400); Red Blood Count 4.74 X10*6/uL (4.20-5.50); Red Cell Distribution Width 14.1 % (11.0-16.0); White Blood Count 4.9 X10*3/uL (4.8-10.8)
[2022-04-29 13:28] LABS: Alanine Aminotransferase 18 U/L (0-31); Albumin Level 3.8 g/dL (3.5-5.0); Alkaline Phosphatase 71 U/L (39-117); Aspartate Amino Transferase 21 U/L (5-31); Bilirubin Direct 0.2 mg/dL (0.0-0.5); Bilirubin Total 0.3 mg/dL (0.0-1.0); Blood Urea Nitrogen 6 mg/dL (9-16); C Reactive Protein 0.76 mg/dL (< or = 0.50); Estimated Glomerular Filt Rate > 60; Total Protein 6.7 g/dL (6.5-8.0)
== END 2022-04-29 08:29 | disposition home or self-care (01) ==
LOC: HO.LAB 08:28
PROVIDERS: PCP Internal Medicine; Visit Provider Internal Medicine Gastroenterology
DX: K51.90 Ulcerative colitis, unspecified, without complications (principal)
CPT/HCPCS: 36415; 80076; 82565; 84520; 85025; 86140

== ENCOUNTER 2022-07-22 11:31 | Outpatient (AMB) | payer OTHER, SELFPAY ==
--- NOTE | 2022-07-22 11:59 | MHC.PC.OV ---
Vital Signs 07/22/22 12:07 Height 5 ft 1 in Weight 106 lb BMI 20.0 BP 94/60 Blood Pressure Location Lt brachial Position Sitting Pulse 90 Pulse Source Pulse Oximeter Pulse Oximetry (%) 97 Oxygen Delivery Method Room Air Intake Visit Reasons: bilat shoulders & leg cramps, & hand pain Intake Note: Pt is here today c/o pain and bruising Lt leg and Lt knee [id number] comes and goes no injury noted Allergies No Known Allergies [No Known Allergies*] Allergy (Verified 07/30/23 00:53) Medication List - Last Reconciled 07/22/22 by Melissa De La Torre MD azathioprine 50 mg PO DAILY 30 days calcium carbonate (Calcium) 600 mg PO DAILY cholecalciferol (vitamin D3) 10 mcg PO DAILY 30 days wwxnxeez-kqowxa-qjhvqhgg acid 500 mg-800 mcg- 50 mg caps PO hyoscyamine sulfate 0.125 mg PO BID PRN 90 days mesalamine 2.4 grams PO DAILY mesalamine 1,000 mg OH BEDTIME 90 days multivitamin 1 tab PO DAILY Tobacco use date assessed: 07/22/22 HPI bilat shoulders & leg cramps, & hand pain HPI Details 53-year-old lady with ulcer to colitis, currently now being followed at [facility], here today complaining of recurrent unusual bruising and pain mainly in left leg in left knee accompanied by cramping and bilat shoulder pain and hand pain. She has been given several prescription for prednisone, and was on azathioprine.. No history of any strenuous exertion or trauma. [facility] Medical History Plantar fasciitis of left foot Vaccination declined Erythema nodosum Sore throat Hx of abnormal cervical Pap smear Chronic right shoulder pain Shoulder pain, bilateral Bilateral posterior neck pain ASCUS of cervix with negative high risk HPV Hx of iron deficiency GERD (gastroesophageal reflux disease) Ulcerative colitis Surgical History Hx of sigmoidoscopy History of esophagogastroduodenoscopy Hx of tubal ligation Hx of colonoscopy Family History Father HTN (hypertension) Diabetes Mother Leukemia Melanoma Paternal Grandmother Colon polyps Social History Household Members: Spouse Housing: House Alcohol intake: never Patient Tobacco Use Status: Never used Tobacco e-Cigarette/Vaping Use: Never Used Advance Directives: No Advance Directives Information Provided: No service: No Current occupational status: employed 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 1. Little interest or pleasure in doing things: not at all 2. Feeling down, depressed, or hopeless: not at all 3. Trouble falling or staying asleep, or sleeping too much: not at all 4. Feeling tired or having little energy: not at all 5. Poor appetite or overeating: not at all 6. Feeling bad about yourself - or that you are a failure or have let yourself or your family down: not at all 7. Trouble concentrating on things, such as reading the newspaper or watching television: not at all 8. Moving or speaking so slowly that other people could have noticed. Or the opposite - being so fidgety or restless that you have been moving around a lot more than usual: not at all 9. Thoughts that you would be better off or of hurting yourself in some way: not at all Total score: 0 Depression Screening Interpretation: Negative 64312 - PHQ-9 Billing: Yes Source: Developed by Drs. Fawad Eastman, Navya Lepe, Campbell Robins and colleagues, with an educational richmond from [employer]. Thrive Questionnaire Date Thrive assessed: 07/22/22 I am a: Patient What is your living situation today?: I have a steady place to live Within the past 12 months, did the food you bought not last and you didn't have the money to get more?: Never true Within the past 12 months, did you worry whether your food would run out before you got money to buy more?: Never true Do you have trouble paying for medicines?: No Do you have trouble getting transportation to medical appointments?: No Do you have trouble paying your heating and electricity bill?: No Do you have trouble taking care of your child, family member or friend?: No Do you have trouble with day-to-day activities such as bathing, preparing meals, shopping, managing finances, etc.?: No Are you currently unemployed and looking for a job?: No BARON-7 AMB Questionnaire BARON-7 Date BARON - 7 assessed: 07/22/22 Feeling nervous, anxious, or on edge: 0 = Not at all Not being able to stop or control worryin = Not at all Worrying too much about different things: 0 = Not at all Trouble relaxin = Not at all Being so restless that it is hard to sit still: 0 = Not at all Becoming easily annoyed or irritable: 0 = Not at all Feeling afraid as if something awful might happen: 0 = Not at all Total BARON-7 score (0-4 normal; 5-9 mild; 10-14 moderate; 15-21 severe): 0 Source: Developed by Drs. Fawad Eastman, Navya Lepe, Campbell Robins and colleagues, with an educational richmond from [employer]. BARON-7 Assessment Billing BARON-7 Assessment Tool: BARON-7 Assessment 72568 Review of Systems Const All systems reviewed & are unremarkable except as noted in HPI and below Physical exam (Primary Care) Vital Signs: Last Vital Signs Pulse 90 07/22/22 12:07 BP 94/60 07/22/22 12:07 Pulse Ox 97 07/22/22 12:07 Oxygen Delivery Method Room Air 07/22/22 12:07 BMI result Body Mass Index 20.0 Tobacco/Smoking Status: Tobacco use Status Tobacco use date assessed 07/22/22 07/22/22 12:01 Patient Tobacco Use Status Never used Tobacco 07/22/22 12:01 e-Cigarette/Vaping Use Never Used 07/22/22 12:01 PHQ-9: PHQ-9 Score PHQ-9: Total score 0 07/22/22 12:43 Depression Screening Interpretation: Negative Thrive Assessment: Date of Thrive Assessment Date Thrive assessed 07/22/22 07/22/22 12:12 Const Other: Alert oriented x3, no acute distress noted, ambulatory normal gait Orientation/consciousness: patient oriented x3 HENMT Head: Yes normocephalic and Yes atraumatic Ears: hearing grossly normal bilaterally and external ears normal General nose exam: Normal external nose present Face and sinus: Yes normal facial exam and Yes sinuses nontender Mouth: Normal oral and palatal mucosa present, oropharynx normal and moist mucous membranes Eyes General: appearance normal, both eyes and all related structures Neck Neck: Yes full ROM, Yes no lymphadenopathy and Yes supple Resp Auscultation: clear to auscultation bilaterally Cardio Other: S1-S2 present regular rate and rhythm GI Inspection: Yes normal to inspection Palpation (GI): Soft to palpation, nontender, no guarding and no masses Auscultation: normal bowel sounds Skin Other: fluctua,slightly tender nodular mass on left lower extremity Neuro General: patient oriented x3, gait normal, tone normal, moves all extremities, Normal light touch and pain sensation and no focal motor deficits Extrem General: Yes full ROM and Yes no joint enlargement Assessment and Plan Assessment & Plan (1) Erythema nodosum: Comment: left lower extremity Code(s): L52 - Erythema nodosum Plan: Likely in relation to her ulcerative colitis, advised to take nonsteroidal anti-inflammatory drugs such as ibuprofen or naproxen as needed for pain control and recommend rest and venous compression (2) Ulcerative colitis: Code(s): K51.90 - Ulcerative colitis, unspecified, without complications Qualifiers: Ulcerative colitis location: unspecified ulcerative colitis location Digestive disease complication type: without complication Qualified Code(s): K51.90 - Ulcerative colitis, unspecified, without complications Plan: followed by [facility], and is to be scheduled for a colonoscopy Coding Level of Care Code Est Pt Level 3 (24455) Diagnoses Erythema nodosum L52 Ulcerative colitis without complications, unspecified location K51.90 Ulcerative colitis location: unspecified ulcerative colitis location Digestive disease complication type: without complication Additional Codes BARON-7 Assessment Billing - BARON-7 Assessment Tool: BARON-7 Assessment [id number] ([id number])
[2022-07-22 12:07] VITALS: BP 94/60; PULSE 90; O2SAT 97
== END 2022-07-22 12:54 | disposition home or self-care (01) ==
PROVIDERS: PCP Internal Medicine; Visit Provider Internal Medicine
DX: L52 Erythema nodosum (principal); K51.90 Ulcerative colitis, unspecified, without complications
CPT/HCPCS: 99213

== ENCOUNTER 2022-08-02 11:59 | Day surgery (SDC) | payer OTHER, SELFPAY ==
--- NOTE | 2022-08-01 10:48 | P.CONAN_ITS ---
Documented by User: Yohana Velazquez NP 08/01/22 10:51 HPI - Anesthesia Eval Consult details Narrative: 52yo F for Sigmoidoscopy Flexible s/p colonoscopy 11/2021 with [facility] Active Problems Active Problems: All Active Problems (Updated 07/22/22 @ 12:43 by Melissa De La Torre MD) Erythema nodosum (Acute) Sore throat (Acute) UTI (urinary tract infection) (Acute) Flank pain (Acute) Periscapular pain (Acute) Right shoulder tendonitis (Acute) Encounter for screening mammogram for malignant neoplasm of breast (Acute) Encounter for annual routine gynecological examination (Acute) Elevated LFTs (Acute) Chronic right shoulder pain (Acute) Bilateral posterior neck pain (Acute) Lactose intolerance (Acute) Abdominal bloating (Acute) IBS (irritable bowel syndrome) (Acute) Osteopenia (Acute) ASCUS of cervix with negative high risk HPV (Acute) Osteoporosis screening (Acute) Well woman exam (Acute) Hx of iron deficiency (Acute) GERD (gastroesophageal reflux disease) (Acute) Ulcerative colitis (Acute) Past Medical History Medical History (Updated 07/22/22 @ 12:43 by Melissa De La Torre MD) Bilateral posterior neck pain Chronic right shoulder pain Erythema nodosum GERD (gastroesophageal reflux disease) Hx of abnormal cervical Pap smear Hx of iron deficiency Shoulder pain, bilateral Sore throat Ulcerative colitis Family History Family History Father HTN (hypertension) Diabetes Mother Leukemia Melanoma Paternal Grandmother Colon polyps Family history of problems with anesthesia: No Surgical History Surgical History History of esophagogastroduodenoscopy Hx of colonoscopy Hx of tubal ligation History of Problems with Anesthesia: No Social History Social History Household Members: Spouse Housing: House Alcohol intake: never Patient Tobacco Use Status: Never used Tobacco e-Cigarette/Vaping Use: Never Used Use of substances other than those prescribed or required for medical reasons: No Are you DNR?: No Advance Directives: No Advance Directives Information Provided: Yes service: No Current occupational status: employed 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 Sexual orientation: Straight/Heterosexual Gender identity: Female Cognitive needs: No Hearing needs: No Vision needs: No Meds Allergies Allergy/AdvReac Type Severity Reaction Status Date / Time No Known Allergies Allergy Verified 07/22/22 12:22 [No Known Allergies*] Home Medications Medication Instructions Recorded Confirmed Last Taken Type calcium carbonate 600 mg calcium 600 mg PO DAILY 10/16/21 04/29/22 Unknown History (1,500 mg) tablet (Calcium) collagen,hydrolysate 500 mg-biotin cap PO 10/16/21 04/29/22 Unknown History 800 mcg-ascorbic acid 50 mg capsule multivitamin 1 tab PO DAILY 10/16/21 04/29/22 Unknown History Exam Exam Date and Time: August 01, 2022 104 Pertinent Lab Results Pertinent Lab Results: Laboratory Tests 03/04/22 04/29/22 04/29/22 09:52 08:25 08:25 WBC 4.9 Hgb 12.1 Hct 38.7 Plt Count 317 Sodium 142 Potassium 4.0 Chloride 102 Carbon Dioxide 30 H BUN 6 L Creatinine 0.63 Assessment and Plan Assessment Anesthesia Assessment: Chart Reviewed Final Anesthetic Review Family History of Problems with Anesthesia: No History of Problems with Anesthesia: No Documented by User: Helen Lira MD 08/02/22 15:10 PMFSH Past Medical History Medical History (Updated 07/22/22 @ 12:43 by Melissa De La Torre MD) Bilateral posterior neck pain Chronic right shoulder pain Erythema nodosum GERD (gastroesophageal reflux disease) Hx of abnormal cervical Pap smear Hx of iron deficiency Shoulder pain, bilateral Sore throat Ulcerative colitis Family History Family History Father HTN (hypertension) Diabetes Mother Leukemia Melanoma Paternal Grandmother Colon polyps Surgical History Surgical History History of esophagogastroduodenoscopy Hx of colonoscopy Hx of tubal ligation Social History Social History Household Members: Spouse Housing: House Alcohol intake: never Patient Tobacco Use Status: Never used Tobacco e-Cigarette/Vaping Use: Never Used Use of substances other than those prescribed or required for medical reasons: No Are you DNR?: No Advance Directives: No Advance Directives Information Provided: Yes service: No Current occupational status: employed 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 Sexual orientation: Straight/Heterosexual Gender identity: Female Cognitive needs: No Hearing needs: No Vision needs: No Meds Allergies Allergy/AdvReac Type Severity Reaction Status Date / Time No Known Allergies Allergy Verified 07/22/22 12:22 [No Known Allergies*] Home Medications Medication Instructions Recorded Confirmed Last Taken Type calcium carbonate 600 mg calcium 600 mg PO DAILY 10/16/21 04/29/22 Unknown History (1,500 mg) tablet (Calcium) collagen,hydrolysate 500 mg-biotin cap PO 10/16/21 04/29/22 Unknown History 800 mcg-ascorbic acid 50 mg capsule multivitamin 1 tab PO DAILY 10/16/21 04/29/22 Unknown History Exam Airway Mallampati Class: I TM Dist: >3cm Neck ROM: Full Heart: rrr Lungs: cta Assessment and Plan Assessment Anesthesia Assessment: Anesthesia Plan Discussed Final Anesthetic Review NPO: Yes ASA Class: II Final Preanesthetic Review: No Changes in Pt Med Stat, Meds/Allgs Chart Reviewed, Consent Obtained/Reviewed and Anes Risks/Benef Reviewed Patient Risk: Low Procedure Risk: Low Anesthetic Plan Anesthetic Plan: MAC: and Agree w/ Assess. and Plan Disposition: Standard PACU
[2022-08-02 13:59] VITALS: BMI 19.3
[2022-08-02 14:03] VITALS: BP 123/73; PULSE 71; RESP 16; TEMP 36.8; O2SAT 99
[2022-08-02] MEDS: Lactated Ringers 1,000 ML 100 ML IVCONT (14:10)
[2022-08-02] MEDS: Sodium Phosphate,Mono-Dibasic 133 ML ENEMA PR (14:10)
--- NOTE | 2022-08-02 14:29 | MHC.SHP ---
Pre-Procedural Eval Section A Date of Service: 08/02/22 The patient is an INPATIENT: No The History & Physical has been completed within 30 days and I have reviewed it.: No Section B Chief Complaint: colitis,IBS Details of Present Illness: Fu of UC Relevant Family History (Specify if Yes): Yes Relevant Social History: None Present Medications: see Short Stay Collaborative assessment Medical History: Significant History (GERD (gastroesophageal reflux disease) Hx of abnormal cervical Pap smear Hx of iron deficiency Shoulder pain, bilateral Sore throat Ulcerative colitis) History of Previous Operations: Relevant previous surgery/procedure and date(s) (History of EGD and colonoscopy) Allergies: Allergies Allergy/AdvReac Type Severity Reaction Status Date / Time No Known Allergies Allergy Verified 07/22/22 12:22 [No Known Allergies*] Review of Systems Sugical H&P ROS: Negative: Constitution, Cardiovascular and Respiratory and Yes, Specify: Gastrointestinal (abd pain, diarrhea, rectal bleeding) Exam Surgical H&P Exam: Normal: Heart, Normal: Lungs, Normal: Extremities and Normal: Abdomen Plan Diagnosis/Plan: Change (proceed with flexible sigmoidoscopy) I have reviewed the history and physical and performed a pertinent physical examination on my patient. No changes have occurred unless specified. Time Spent With Patient Time: Total time managing care of this patient today ____ minutes.
[2022-08-02 14:30] VITALS: BMI 19.3
--- NOTE | 2022-08-02 15:50 | P.BOP_ITS ---
Brief Operative Note Date of Service: 08/02/22 Pre-op diagnosis: Ulcerative colitis, diarrhea, rectal bleeding Post-op diagnosis: other (LEFT-SIDED COLITIS) Procedure: FLEXIBLE SIGMOIDOSCOPY WITH BIOPSIES Surgeon: Brad Napoles MD Anesthesia: MAC Was an Medical Fee Clerk used for this Procedure?: Yes Medical Fee Clerk: Elise Chowdhury Estimated blood loss (mL): 0 Pathology: other (A: sigmoid biopsy to rule out ulcerative colitis B :cytomegalovirus) Condition: stable Disposition: PACU
--- NOTE | 2022-08-02 15:50 | W.PM.OPN ---
Operative Note Operative Note Date of Service: 08/02/22 Narrative: Pre-op diagnosis: Ulcerative colitis, diarrhea, rectal bleeding Post-op diagnosis:?other (LEFT-SIDED COLITIS) Surgeon: Brad Napoles MD Anesthesia:?MAC FLEXIBLE SIGMOIDOSCOPY TILL 40 CMS WITH BIOPSIES Consent: Indications for the procedure and potential complications of bleeding, perforation, reaction to medications and missed diagnosis were discussed with the patient and informed consent was obtained. Instrument: Olympus GIF H 190 midsize upper endoscope Monitoring: Vital signs and clinical assessment, intermittent blood pressure monitoring, continuous EKG monitoring, Pulse oximetry and Carbon Dioxide monitoring were done throughout the procedure. Procedure: The patient was placed in the left lateral decubitis position and pre-procedure medications were administered. After a digital rectal examination of the ano-rectum, the video colonoscope was inserted into the rectum and advanced through the colon till 40 cms into the sigmoid colon. The colonoscope was slowly withdrawn in a retrograde panoramic fashion and the colon mucosa was carefully examined including a retroflexed view of the rectum. Findings and interventions are described below. Procedure Difficulty: Without difficulty Findings: Sigmoid Colon: Edema, patchy erythema with nodular and friable appearing mucosa with scattered aphthoid ulcers from 0 to 40 cms and extending proximally - biopsies were obtained for histology and CMV Rectum: Edema, patchy erythema with nodular and friable appearing mucosa with scattered aphthoid ulcers from 0 to 40 cms and extending proximally - biopsies were obtained for histology and CMV Ano-rectum: Normal Colon preparation: Good Impression and Post Procedure Diagnosis: Colonoscopy Findings: No polyps were detected. Edema, patchy erythema with nodular and friable appearing mucosa with scattered aphthoid ulcers from 0 to 40 cms and extending proximally - biopsies were obtained for histology and CMV Plan: Await pathology results Patient has an appointment on 09/26/22 in the GI Clinic with Brad Napoles M.D. Repeat Colonoscopy interval based on path results - in 3-5 years if polyps are adenomatous and 10 years if polyps are hyperplastic. Above findings were reviewed with the patient and ulcerative colitis handout was given in the discharge area
[2022-08-02 16:21] VITALS: BP 97/67; PULSE 99; RESP 16; TEMP 36.6; O2SAT 99
[2022-08-02 16:36] VITALS: BP 106/99; PULSE 79; RESP 18; TEMP 36.5; O2SAT 100
[2022-08-06 15:19] LABS: CMV Culture Source TISSUE
== END 2022-08-02 17:05 | disposition home or self-care (01) ==
PROVIDERS: PCP Internal Medicine; Visit Provider Internal Medicine Gastroenterology
PROC: 0DJD8ZZ Inspection of Lower Intestinal Tract, Via Natural or Artificial Opening Endoscopic (ICD-10-PCS; CPT 45330; principal; 2022-08-02 13:20)
DX: K51.90 Ulcerative colitis, unspecified, without complications (principal); K62.5 Hemorrhage of anus and rectum; K21.9 Gastro-esophageal reflux disease without esophagitis; E73.9 Lactose intolerance, unspecified; Z86.2 Personal history of diseases of the blood and blood-forming organs and certain disorders involving the immune mechanism; Z86.39 Personal history of other endocrine, nutritional and metabolic disease; Z79.899 Other long term (current) drug therapy; Z98.51 Tubal ligation status
CPT/HCPCS: 45331; 36415; 86644; 86645; 88305; 88342

== ENCOUNTER 2022-10-10 10:30 | Outpatient (REF) | payer OTHER, SELFPAY ==
[2022-10-10 12:24] LABS: Hematocrit 41.1 % (37.0-47.0); Hemoglobin 12.8 g/dl (12.0-16.0); Mean Corpuscular HGB Conc 31.1 g/dl (31.0-35.0); Mean Corpuscular Hemoglobin 25.6 pg (27.0-33.0); Mean Corpuscular Volume 82.2 fL (80.0-98.0); Mean Platelet Volume 8.9 fL (9.4-12.3); Platelet Count 347 X10*3/uL (160-400); Red Cell Distribution Width 15.8 % (11.0-16.0); White Blood Count 5.7 X10*3/uL (4.8-10.8)
[2022-10-10 12:57] LABS: Alanine Aminotransferase 10 U/L (0-31); Albumin Level 3.9 g/dL (3.5-5.0); Alkaline Phosphatase 73 U/L (39-117); Aspartate Amino Transferase 13 U/L (5-31); Bilirubin Direct 0.2 mg/dL (0.0-0.5); Bilirubin Total 0.7 mg/dL (0.0-1.0); Estimated Glomerular Filt Rate > 60
[2022-10-13 04:34] LABS: TS Negative Control Passed; TS Panel A 0; TS Panel B 1; TS Positive Control Passed; TSpotTB Negative (Negative)
== END 2022-10-10 10:31 | disposition home or self-care (01) ==
LOC: HO.LAB 10:30
PROVIDERS: PCP Internal Medicine; Visit Provider Internal Medicine Gastroenterology
DX: K51.90 Ulcerative colitis, unspecified, without complications (principal); E73.9 Lactose intolerance, unspecified; R14.0 Abdominal distension (gaseous); K21.9 Gastro-esophageal reflux disease without esophagitis; Z86.39 Personal history of other endocrine, nutritional and metabolic disease
CPT/HCPCS: 36415; 80076; 82565; 85027; 86481

== ENCOUNTER → 2022-10-31 10:57 | Outpatient (BNVA) | payer OTHER, SELFPAY | PROVIDERS: PCP Internal Medicine; Visit Provider Internal Medicine Gastroenterology | DX: Z13.89 Encounter for screening for other disorder (principal) ==

== ENCOUNTER 2022-12-06 11:38 | Outpatient (AMB) | payer OTHER, SELFPAY ==
[2022-12-06 12:31] VITALS: BP 98/64; PULSE 88; O2SAT 98; BMI 17.7
--- NOTE | 2022-12-06 12:31 | A.OFFPC_ITS ---
<Statement entered by Melissa De La Torre MD - 11/10/24 15:15> This note has been administratively?closed. Vital Signs 12/06/22 12:31 Height 5 ft 2 in Weight 97 lb BMI 17.7 BP 98/64 Blood Pressure Location Rt brachial Position Sitting Pulse 88 Pulse Source Pulse Oximeter Pulse Oximetry (%) 98 Oxygen Delivery Method Room Air Intake Visit Reasons: ANNUAL PE over due Intake Note: Pt is here today for her PE Allergies No Known Allergies [No Known Allergies*] Allergy (Verified 12/06/22 12:31) Tobacco use date assessed: 12/06/22 [facility] Medical History (Updated 12/06/22 @ 13:17 by Melissa De La Torre MD) ASCUS of cervix with negative high risk HPV Bilateral posterior neck pain Chronic right shoulder pain Erythema nodosum GERD (gastroesophageal reflux disease) Hx of abnormal cervical Pap smear Hx of iron deficiency Shoulder pain, bilateral Sore throat Ulcerative colitis Vaccination declined Surgical History History of esophagogastroduodenoscopy Hx of colonoscopy Hx of sigmoidoscopy Hx of tubal ligation Family History Father HTN (hypertension) Diabetes Mother Leukemia Melanoma Paternal Grandmother Colon polyps Social History Household Members: Spouse Housing: House Alcohol intake: never Patient Tobacco Use Status: Never used Tobacco e-Cigarette/Vaping Use: Never Used service: No Current occupational status: employed 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 1. Little interest or pleasure in doing things: not at all 2. Feeling down, depressed, or hopeless: several days 3. Trouble falling or staying asleep, or sleeping too much: not at all 4. Feeling tired or having little energy: not at all 5. Poor appetite or overeating: not at all 6. Feeling bad about yourself - or that you are a failure or have let yourself or your family down: not at all 7. Trouble concentrating on things, such as reading the newspaper or watching television: not at all 8. Moving or speaking so slowly that other people could have noticed. Or the opposite - being so fidgety or restless that you have been moving around a lot more than usual: not at all 9. Thoughts that you would be better off or of hurting yourself in some way: not at all Total score: 1 Source: Developed by Drs. Fawad Eastman, Navya Lepe, Campbell Robins and colleagues, with an educational richmond from [employer]. Thrive Questionnaire Date Thrive assessed: 12/06/22 I am a: Patient What is your living situation today?: I have a steady place to live Within the past 12 months, did the food you bought not last and you didn't have the money to get more?: Never true Do you have trouble paying for medicines?: No Do you have trouble getting transportation to medical appointments?: No Do you have trouble paying your heating and electricity bill?: No Do you have trouble taking care of your child, family member or friend?: No Do you have trouble with day-to-day activities such as bathing, preparing meals, shopping, managing finances, etc.?: No Are you currently unemployed and looking for a job?: No Are you interested in more education?: No AUDIT C Alcohol Use Questionnaire (AUDIT-C) 1. How often do you have a drink containing alcohol?: Never Total Score: 0 BARON-7 AMB Questionnaire BARON-7 Date BARON - 7 assessed: 12/06/22 Feeling nervous, anxious, or on edge: 1 = Several days Not being able to stop or control worryin = Not at all Worrying too much about different things: 0 = Not at all Trouble relaxin = Not at all Being so restless that it is hard to sit still: 0 = Not at all Becoming easily annoyed or irritable: 0 = Not at all Feeling afraid as if something awful might happen: 0 = Not at all Total BARON-7 score (0-4 normal; 5-9 mild; 10-14 moderate; 15-21 severe): 1 Source: Developed by Drs. Fawad Eastman, Navya Lepe, Campbell Robins and colleagues, with an educational richmond from [employer]. Physical exam (Primary Care) Vital Signs: Last Vital Signs Pulse 88 12/06/22 12:31 BP 98/64 12/06/22 12:31 Pulse Ox 98 12/06/22 12:31 Oxygen Delivery Method Room Air 12/06/22 12:31 BMI result Body Mass Index 17.7 Tobacco/Smoking Status: Tobacco use Status Tobacco use date assessed 12/06/22 12/06/22 12:33 Patient Tobacco Use Status Never used Tobacco 12/06/22 12:33 e-Cigarette/Vaping Use Never Used 12/06/22 12:33 PHQ-9: PHQ-9 Score PHQ-9: Total score 1 12/06/22 12:33 Thrive Assessment: Date of Thrive Assessment Date Thrive assessed 12/06/22 12/06/22 12:33 Results Reviewed Results Reviewed: NTERED: 10/10/22-[address]: Melissa De La Torre MD ORDERED: CBC No Diff Test Result Flag Reference Site WBC 5.7 4.8-10.8 X10*3/uL RBC 5.00 4.20-5.50 X10*6/uL HGB 12.8 12.0-16.0 g/dl HCT 41.1 37.0-47.0 % MCV 82.2 80.0-98.0 fL MCH 25.6 L 27.0-33.0 pg MCHC 31.1 31.0-35.0 g/dl RDW 15.8 11.0-16.0 % PLT 347 160-400 X10*3/uL MPV 8.9 L 9.4-12.3 fL NRBC Pct Auto 0.0 0.0-0.2 /100WBC NRBC Abs Auto 0.000 0.0-0.012 X10*3/uL NTERED: 10/10/22-[address]: Melissa De La Torre MD ORDERED: Liver Panel, Creat Test Result Flag Reference Site Creat 0.64 0.5-1.4 mg/dL EGFR > 60 NOTE: For -[place] individuals, multiply the result by 1.210. Chronic Kidney Disease: Estimated GFR < 60 mL/min/1.73m2 Severe Kidney Disease: Estimated GFR < 15 mL/min/1.73m2 Total Bili 0.7 0.0-1.0 mg/dL Direct Bili 0.2 0.0-0.5 mg/dL AST (GOT) 13 5-31 U/L ALT (GPT) 10 0-31 U/L Protein, Total 7.0 6.5-8.0 g/dL Alb 3.9 3.5-5.0 g/dL Alk Phos 73 39-117 U/L Assessment and Plan Assessment & Plan (1) Annual visit for general adult medical examination with abnormal findings: Code(s): Z00.01 - Encounter for general adult medical examination with abnormal findings (2) Asymptomatic age-related postmenopausal state: Code(s): Z78.0 - Asymptomatic menopausal state (3) Osteopenia: Code(s): M85.80 - Other specified disorders of bone density and structure, unspecified site (4) Ulcerative colitis: Code(s): K51.90 - Ulcerative colitis, unspecified, without complications (5) IBS (irritable bowel syndrome): Code(s): K58.9 - Irritable bowel syndrome without diarrhea (6) GERD (gastroesophageal reflux disease): Code(s): K21.9 - Gastro-esophageal reflux disease without esophagitis (7) Rash and nonspecific skin eruption: Code(s): R21 - Rash and other nonspecific skin eruption (8) Vaccination declined: Code(s): Z28.21 - Immunization not carried out because of patient refusal Orders: Orders Glucose Fasting Today Z00.01 - Encounter for general adult medical examination with abnormal findings Lipid Panel Today Z00.01 - Encounter for general adult medical examination with abnormal findings XR DEXA axial skeleton Today Z00.01 - Encounter for general adult medical examination with abnormal findings, Z12.31 - Encounter for screening mammogram for malignant neoplasm of breast, Z78.0 - Asymptomatic menopausal state MM screening mammo BI Today Z00.01 - Encounter for general adult medical examination with abnormal findings, Z12.31 - Encounter for screening mammogram for malignant neoplasm of breast, Z78.0 - Asymptomatic menopausal state Vitamin D 25-OH Total Today M85.80 - Other specified disorders of bone density and structure, unspecified site, Z78.0 - Asymptomatic menopausal state Coding Level of Care Code Est Pt Prev Care 40-64y(54949) Diagnoses Annual visit for general adult medical examination with abnormal findings Z00. Asymptomatic age-related postmenopausal state Z78.0 Osteopenia M85.80 Ulcerative colitis K51.90 IBS (irritable bowel syndrome) K58.9 GERD (gastroesophageal reflux disease) K21.9 Rash and nonspecific skin eruption R21 Vaccination declined Z28.21
== END 2022-12-06 13:16 | disposition home or self-care (01) ==
LOC: HO.HMGC 11:38
PROVIDERS: PCP Internal Medicine; Visit Provider Internal Medicine
DX: Z00.01 Encounter for general adult medical examination with abnormal findings (principal); Z78.0 Asymptomatic menopausal state; M85.80 Other specified disorders of bone density and structure, unspecified site; K51.90 Ulcerative colitis, unspecified, without complications; K58.9 Irritable bowel syndrome, unspecified; K21.9 Gastro-esophageal reflux disease without esophagitis; R21 Rash and other nonspecific skin eruption; Z28.21 Immunization not carried out because of patient refusal
CPT/HCPCS: 99499

== ENCOUNTER 2022-12-24 17:38 | Emergency (ER) | payer OTHER, SELFPAY ==
[2022-12-24 17:52] VITALS: BP 128/72; PULSE 111; RESP 16; TEMP 37.1; O2SAT 99; BMI 18.1
--- NOTE | 2022-12-24 17:54 | ED_ITS ---
HPI - General Adult General Chief complaint: General Medical Stated complaint: Headache/redness in eyes/joint pain Time Seen by Provider: 12/24/22 22:13 Source: patient Mode of arrival: ambulatory Limitations: no limitations History of Present Illness HPI narrative: Patient noticed redness in the left eye for the last 3 days now getting the right eye also slight irritation no itching no discharge patient does have pterigium left eye. Patient is complaining of headache which is localizing frontal area no light sensitivity no nausea no vomiting no fever no sinus problem no joint pain Related Data Home Medications Medication Instructions Recorded Confirmed multivitamin 1 tab PO DAILY 10/16/21 10/31/22 Previous Rx's Medication Instructions Recorded ketotifen fumarate 0.025 % (0.035 1 drp ophthalmic (eye) BID #5 mL 12/24/22 %) eye drops (Alaway) tobramycin 0.3 % eye drops 1 drp ophthalmic (eye) Q4H #5 mL 12/24/22 Allergies Allergy/AdvReac Type Severity Reaction Status Date / Time No Known Allergies Allergy Verified 12/24/22 17:55 [No Known Allergies*] Review of Systems Review of Systems: Yes all other systems are reviewed and are negative PMFSH Past Medical History Medical History ASCUS of cervix with negative high risk HPV Bilateral posterior neck pain Chronic right shoulder pain Erythema nodosum GERD (gastroesophageal reflux disease) Hx of abnormal cervical Pap smear Hx of iron deficiency Shoulder pain, bilateral Sore throat Ulcerative colitis Vaccination declined Surgical History History of esophagogastroduodenoscopy Hx of colonoscopy Hx of sigmoidoscopy Hx of tubal ligation Family History Family History Father HTN (hypertension) Diabetes Mother Leukemia Melanoma Paternal Grandmother Colon polyps Social History Social History Household Members: Spouse Housing: House Alcohol intake: never Patient Tobacco Use Status: Never used Tobacco e-Cigarette/Vaping Use: Never Used service: No Current occupational status: employed 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 Sexual orientation: Straight/Heterosexual Gender identity: Female Cognitive needs: No Hearing needs: No Vision needs: No Physical Exam ED Vital Signs: Vital Signs - 24 hr 12/24/22 17:52 12/24/22 21:22 Temperature 98.8 F 99.3 F Pulse Rate 111 H 111 H Respiratory Rate 16 17 Blood Pressure 128/72 113/69 Pulse Oximetry 99 99 Oxygen Delivery Method Room Air BMI result Body Mass Index 18.1 [facility] Ears: hearing grossly normal bilaterally General nose exam: Normal external nose present, Normal nares present and No nasal discharge present Face and sinus: Yes normal facial exam and Yes sinuses nontender Mouth: Normal oral and palatal mucosa present Eyes General: appearance normal, both eyes and all related structures Visual Brooks: normal visual brooks by confrontation Corneas: corneas normal Pupils: Equal, round and reactive pupils present EOM: EOMs intact bilaterally Direct Ophthalmoscopy: no papilledema, fundi normal bilaterally and anterior chamber normal Eyes/upper lids images: 1. Pterygium left eye 2. Inflamed scleral conjunctiva without any discharge 3. Inflamed slight r scleral conjunctiva Resp Effort & Inspection: normal respiratory effort Auscultation: clear to auscultation bilaterally Cardio Rate: regular rate Rhythm: regular rhythm Neuro Cranial nerves: Yes Equal, round and reactive pupils present Course Course Course Narrative: 52-year-old female with past medical history significant for ulcerative colitis, GERD presents for evaluation of weakness, headache, joint pain. Patient reports a 20 lb weight loss in the last month which she attributes to her ulcerative colitis flares. Denies abdominal pain, nausea vomiting, diarrhea today. Plan for labs, UA Medical Decision Making Medical Decision Making [facility] Narrative: Patient clinically allergic conjunctivitis likely has developing pterygium on the lateral aspect of left eye patient advised to follow-up with mis director will give her ketotifen and tobramycin Lab Data 12/24/22 18:22 12/24/22 18:22 Labs: Lab Results 12/24/22 12/24/22 Range/Units 18:22 18:22 WBC 8.4 (4.8-10.8) X10*3/uL RBC 5.08 (4.20-5.50) X10*6/uL Hgb 12.8 (12.0-16.0) g/dl Hct 40.5 (37.0-47.0) % MCV 79.7 L (80.0-98.0) fL MCH 25.2 L (27.0-33.0) pg MCHC 31.6 (31.0-35.0) g/dl RDW 15.0 (11.0-16.0) % Plt Count 365 (160-400) X10*3/uL MPV 8.7 L (9.4-12.3) fL Immature Gran % (Auto) 0.6 H (0.0-0.4) % Neut % (Auto) 45.6 (45-73) % Lymph % (Auto) 37.5 (20-40) % Sharkey % (Auto) 13.9 H (2-11) % Eos % (Auto) 1.8 (0-4) % Baso % (Auto) 0.6 (0-2) % Lymph # (Auto) 3.1 (1.2-4.9) X10*3/uL Sharkey # (Auto) 1.2 (0.1-1.2) X10*3/uL Eos # (Auto) 0.2 (0.0-0.4) X10*3/uL Baso # (Auto) 0.1 (0.0-0.2) X10*3/uL Abs Immat Gran (auto) 0.05 H (0.00-0.03) X10*3/uL Absolute Neuts (auto) 3.8 (2.0-8.3) x10*3/uL Absolute Nucleated RBC 0.000 (0.0-0.012) X10*3/uL Nucleated RBC % (auto) 0.0 (0.0-0.2) /100WBC Urine Color Yellow Urine Appearance Clear Urine pH 7.5 (5.0-9.0) Ur Specific Bryant 1.015 (1.005-1.025) Urine Protein Negative (Neg-Trace) mg/dL Urine Glucose (UA) Negative (Negative) mg/dL Urine Ketones Negative (Negative) mg/dL Urine Blood Negative (Negative) Urine Nitrite Negative (Negative) Ur Leukocyte Esterase Small (1+) H (Negative) Urine RBC 0-2 (0-2) /HPF Urine WBC 0-5 (0-5) /HPF Ur Squamous Epith Cells 0-2 (0-2) /HPF Urine Bacteria None Seen (None Seen) Hyaline Casts 0-2 (0-2) /LPF Discharge Plan Discharge Clinical Impression: Acute allergic conjunctivitis Patient Disposition: Home, Self-Care Instructions: Conjunctivitis (ED) Additional Instructions: Use eyedrops as prescribed and follow-up with your PCP Make an appointment with eye doctor to check your vision Take Tylenol/Motrin for headache Prescriptions: New ketotifen fumarate [Alaway] 0.025 % (0.035 %) drops 1 drp ophthalmic (eye) BID Qty: 5 0RF Rx Instructions: administer at least 8 hours apart tobramycin 0.3 % drops 1 drp ophthalmic (eye) Q4H Qty: 5 0RF No Action multivitamin Tablet 1 tab PO DAILY
--- NOTE | 2022-12-24 18:25 | MHC.EDTECH ---
PATIENT BLOOD VDRAWN AND URINE SAMPLE COLLECTED AND SENT BTO LAB .
[2022-12-24 18:27] LABS: MANUAL DIFF FLAG NO
[2022-12-24 18:30] LABS: Appearance Urine Clear; Color Urine Yellow; Glucose Urine UA Negative (Negative); Leukocyte Esterase Urine Small (1+) (Negative); Nitrite Urine Negative (Negative); PH 7.5 (5.0-9.0); Specific Gravity - Urine 1.015 (1.005-1.025); UMIC TRIGGER UACC YES; Urine Blood Negative (Negative); Urine Ketones Negative (Negative); Urine Protein Negative (Neg-Trace)
[2022-12-24 18:35] LABS: Basophils Absolute Auto 0.1 X10*3/uL (0.0-0.2); Basophils Percent Auto 0.6 % (0-2); Eosinophils Absolute Auto 0.2 X10*3/uL (0.0-0.4); Eosinophils Percent Auto 1.8 % (0-4); Hematocrit 40.5 % (37.0-47.0); Hemoglobin 12.8 g/dl (12.0-16.0); Imm Gran Abs Auto 0.05 X10*3/uL (0.00-0.03); Imm Gran Pct Auto 0.6 % (0.0-0.4); Lymphocytes Absolute Auto 3.1 X10*3/uL (1.2-4.9); Lymphocytes Percent Auto 37.5 % (20-40); Mean Corpuscular HGB Conc 31.6 g/dl (31.0-35.0); Mean Corpuscular Hemoglobin 25.2 pg (27.0-33.0); Mean Corpuscular Volume 79.7 fL (80.0-98.0); Mean Platelet Volume 8.7 fL (9.4-12.3); Monocytes Absolute Auto 1.2 X10*3/uL (0.1-1.2); Monocytes Percent Auto 13.9 % (2-11); Neutrophils Absolute Auto 3.8 x10*3/uL (2.0-8.3); Neutrophils Percent Auto 45.6 % (45-73); Platelet Count 365 X10*3/uL (160-400); Red Blood Count 5.08 X10*6/uL (4.20-5.50); White Blood Count 8.4 X10*3/uL (4.8-10.8)
[2022-12-24 19:00] LABS: Bacteria Urine None Seen (None Seen); Hyaline Casts Urine 0-2 /LPF (0-2); RBC Urine 0-2 /HPF (0-2); Squamous Epithelial Cell Urine 0-2 /HPF (0-2); UACC Culture Trigger YES; WBC Urine 0-5 /HPF (0-5)
[2022-12-24 21:22] VITALS: BP 113/69; PULSE 111; RESP 17; TEMP 37.4; O2SAT 99
--- NOTE | 2022-12-24 23:17 | PC.NURSE ---
patient in the process of being discharged patient is made aware
[2022-12-24] MEDS: Tobramycin Sulfate 0.3% Sol Op 5 ML BTL 2 DROP EYE-BOTH (23:24)
[2022-12-24] MEDS: Butalb/Acetamin/Caff 50/325/40 TABLET 1 TAB PO (23:25)
--- NOTE | 2022-12-24 23:26 | PC.NURSE ---
patient is stable and cleared to be discharged patient was able to tolerate all medications with no issues
== END 2022-12-24 23:28 | disposition home or self-care (01) ==
PROVIDERS: Physician Assistant; Emergency Provider Internal Medicine; PCP Internal Medicine
DX: H10.33 Unspecified acute conjunctivitis, bilateral (principal); R51.9 Headache, unspecified; Z79.899 Other long term (current) drug therapy
CPT/HCPCS: 36415; 81001; 85025; 87086; 99283; 99284

== ENCOUNTER 2022-12-27 07:40 | Outpatient (AMB) | payer OTHER, SELFPAY ==
--- NOTE | 2022-12-27 07:52 | MHC.OFFVIS ---
Vital Signs 12/27/22 07:58 Height 5 ft 2 in Weight 96 lb BMI 17.6 BP 92/59 L Blood Pressure Location Lt brachial Position Sitting Pulse 78 Intake Visit Reasons: Elevated LFTs Intake Note: Patient follow up for Elevated LFTs. Patient cc: abdominal bloating and diarrhea. Also left foot is swelling and redness skin. Business Continuity Director Required: No Accompanied by: Self / Same As Patient Allergies No Known Allergies [No Known Allergies*] Allergy (Verified 07/30/23 00:53) Medication List - Last Reconciled 12/27/22 by Brad Napoles MD multivitamin 1 tab PO DAILY prednisolone acetate 1% 1 drp ophthalmic (eye) QID HPI HPI Elevated LFTs: Details: GI clinic visit for this 52 YF for FU of IBD complicated by intermittent rectal bleeding Pt has been followed by Dr. Boss since Jun 2015 when she presented with anemia LABS IN [facility] :?08/2018 Fecal calprotectin > 2000, 02/2020 Fecal calprotectin 187 2017 Celiac panel was negative with normal Ig A 2016 IBD serologies were negative. TPMT enzyme activity was normal IMAGING STUDIES:? 09/[address] SCAN SHOWED: Segment of mild wall thickening and relative mucosal enhancement involving the descending colon as well as a segment of thickening involving a small bowel loop in the left upper quadrant, though without significant regional inflammation. Findings are most in keeping with patient's known history of inflammatory bowel disease, with early active sites of disease not excluded. 03/2020 ABD MRI SHOWED: 1.? Moderate stool throughout the majority except the proximal and mid sigmoid colon.? There Is improved calcification in caliber of the distal colon compared to the previous CT. No significant mural thickening or abnormal focal enhancement is seen. 2. Tiny right upper pole renal cyst demonstrate benign features. 3. Small fat containing umbilical hernia without significant change. 4. L4-5 S1 mild degenerated disc disease. ? ENDOSCOPIC STUDIES: 11/12/21 Colonoscopy showed: One small and one medium sized hyperplastic polyps removed Surveillance biopsies were obtained from the colon. Moderate diverticulosis seen in the sigmoid colon Plan:? Repeat Colonoscopy interval based on path results - in 2-3 years if polyps are adenomatous and if no dysplasia on surveillance biopsies of the colon. BIOPSIES SHOWED: A.? Cecum, biopsy:? Focally active colitis; no fully-developed chronic injury identified. B.? Colon, 60-70 cm, biopsy:? Colonic mucosa within normal limits. C.? Colon, ascending, polypectomy:? Colonic mucosa with mild surface hyperplastic changes. D.? Colon, transverse, polypectomy:? Hyperplastic mucosal polyp. E.? Colon, 40-50 cm, biopsy:? Chronic inactive colitis. F. ? Colon, 20-30 cm, biopsy:? Chronic inactive colitis. G.? Colon, 10 cm, biopsy:? Chronic inactive colitis. COMMENT:? Dysplasia or granulomata are identified. IBD SUMMARY YEAR OF DIAGNOSIS: 2009 (on colonoscopy in [place]) DISEASE EXTENT: Left colon LAST COLONOSCOPY FINDINGS:? 2018 - mild to moderate left sided colitis Bx showed mildly active chronic colitis without granulomas or dysplasia. NEXT COLON DUE:? 2023 EXTRAINTESTINAL MANIFESTATIONS:Joint pains, ptrygium in left eye GI SURGERY:? None PAST TREATMENTS:? Prednisone taper CURRENT THERAPY: Mesalamine, dicyclomine VACCINATIONS: Flu shot: flu shot yearly Hep A/B serology /vaccination:? ? 5 yrs ago TB screen:? Yearly while in [place], none for the past 5 yrs. TODAY'S VISIT: Denies abd pain or wt loss like before. Can have diarrhea once in a while depending on what she eats. Eating more seafood and vegetables with improvement in symptoms. Has 2-3 BMs a day with soft and sometimes watery stools Continues to have intermittent rectal bleeding Completed prednisone taper end of November. Complains of pain, swelling and redness of left foot and pain in her knee since yesterday morning with chills. PAST VISITS: Pt is accompanied by her daughter. Stopped azathioprine a week ago since she was having more abdominal pain. Denies abdominal bloating and having abdominal pain. Has not been taking any medications and has been loosing weight. Having upto 6 watery BMs a day - with intermittent bleeding. Had fever x 2 weeks Seen in the ER at [facility] and diagnosed with a UTI COVID test was negative She was taking Hyoscyamine instead of azathioprine x 2 months Realized her mistake and has been taking azathiorpine for the past 2 weeks and is feeling better Notes rectal pain when she takes mesalamine and stopped mesalamine for the past 3 days Has been sleeping well and has 2-3 Bms a day Can have insomnia due to stomach being bloated and abdominal cramps. Complains of watery diarrhea (sometimes 8 to 10 BMs a day) with blood. Blood is bright red and appears separate from the stool Can have 0 to 4-5 Bms at night. Feels weak and has lost weight. Has been working from home due to diarrhea. Complains of intermittent rectal bleeding - improves after she takes prednisone Having rectal bleeding for the past 2 weeks - blood was pinkish followed by BR and sometimes burgundy in color. Saw some red tissue.? Blood was separate from the stools. Had formed stools followed by diarrhea. Also noted lower abdominal and rectal pain and legs felt weak. Rectum felt inflammed and pain did not go away for a long time. Denies change in appetite or weight Had 10-12 watery BMs a day. Had liquid stools every time she went to [facility]. PAST VISIT: Patient denies symptoms of heartburn, dysphagia, nausea, vomiting, change in appetite or weight.? Patient denies major cardiac or pulmonary problems, loud snoring or sleep apnea Denies problems with anesthesia in the past. Denies being on chronic anticoagulation or NSAID use.. Patient denies known family history of IBD, colon cancer. 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 ? Caffeine:? 1-2 cups per day. ? Children: adults live in [place]. ? Living with:? . ? Marital status: . Denies smoking. PAST GI HISTORY BY REVIEW OF MEDICAL RECORDS: Pt was last seen by Dr Boss in 08/2020: Ms. Diaz is a 50 y/o woman with pmhx Inflamatory bowel disease most c/ ulcerative colitis. She is presenting for GI follow up. The patient reports moving her bowels daily with intermittent diarrhea,usually provoked by dietary indiscretion. She states certain foods like pizza and hamburger exacerbates her symptoms. She adjusts her dicyclomine intake depending on symptoms. She reports pain in her back that is not resolved by methocarbamol. She suspects her pain is because of working 2 jobs with prolonged sitting in front of the computer. She tells me that she had recent bone density done ordered by her?PCP [facility] Medical History Plantar fasciitis of left foot Vaccination declined Erythema nodosum Sore throat Hx of abnormal cervical Pap smear Chronic right shoulder pain Shoulder pain, bilateral Bilateral posterior neck pain ASCUS of cervix with negative high risk HPV Hx of iron deficiency GERD (gastroesophageal reflux disease) Ulcerative colitis Surgical History Hx of sigmoidoscopy History of esophagogastroduodenoscopy Hx of tubal ligation Hx of colonoscopy Family History Father HTN (hypertension) Diabetes Mother Leukemia Melanoma Paternal Grandmother Colon polyps Social History Household Members: Spouse Housing: House Alcohol intake: never Patient Tobacco Use Status: Never used Tobacco e-Cigarette/Vaping Use: Never Used service: No Current occupational status: employed 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 Sexual orientation: Straight/Heterosexual Gender identity: Female Cognitive needs: No Hearing needs: No Vision needs: No Review of Systems Const All systems reviewed & are unremarkable except as noted in HPI and below Physical Exam Vital Signs: Last Vital Signs Pulse 78 12/27/22 07:58 BP 92/59 L 12/27/22 07:58 BMI result Body Mass Index 17.6 Const General: no acute distress Nutritional Appearance: underweight Orientation/consciousness: patient oriented x3 Limitations: no limitations HEENT Head: Yes normal to inspection Ears: hearing grossly normal bilaterally Eyes Sclerae: sclerae normal Pupils: Equal, round and reactive pupils present Neck Neck: Yes normal visual inspection Chest Chest palpation & inspection: normal inspection of the chest Resp Effort & Inspection: normal respiratory effort Auscultation: clear to auscultation bilaterally Cardio Palpation: normal PMI Rate: regular rate Rhythm: regular rhythm Heart sounds: S1 normal heart sound present, S2 normal heart sound present and no murmurs GI Palpation (GI): Soft to palpation, nontender and No hepatosplenomegaly present Auscultation: normal bowel sounds Rectal Exam - Female: deferred Skin General skin exam: no rashes or lesions noted Neuro General: patient oriented x3, gait normal and moves all extremities Cranial nerves: Yes Equal, round and reactive pupils present Psych Appearance: grossly normal Mental Status: mental status grossly normal Assessment & Plan Assessment & Plan (1) Ulcerative colitis: Code(s): K51.90 - Ulcerative colitis, unspecified, without complications Category: Medical (2) GERD (gastroesophageal reflux disease): Code(s): K21.9 - Gastro-esophageal reflux disease without esophagitis Category: Medical Plan 52 YF followed in GI for GERD, lactose intolerance, IBS and left sided UC diagnosed in 2009 (IN [place]). Patient complains of abdominal cramps and bloating related to diet (spicy foods, fruits and milk products). Her symptoms are likely a combination of lactose intolerance, left sided UC and IBS - she was advised to take a simethicone p.r.n. for gas and bloating. She takes dicyclomine 10 mg prn with relief of abdominal cramps and notes dizziness and dry mouth. Pt was advised switching to low-dose hyoscyamine in place of dicyclomine.? Patient handouts on lactose intolerance and gas and bloating were given to the patient during a previous visit. 11/2021 colonoscopy was performed and findings as noted above. 10/10/22 Pt was advised to continue azathioprine 50 mg daily (TPMT assay showed normal enzyme activity) to induce remission and have labs checked today 10/10/22 Labs results reviewed with the patient by phone - normal Pt was advised to increase azathioprine to 100 mg daily starting on 10/27/22 10/31/22 Pt unable to tolerate azathioprine. Pt was advised to start a Prednisone taper Option of initiating treatment with Biologics - Remicade or Humira was reviewed with the patient Pt would like to think over and call me back FU in 6 to 8 weeks 11/28/22 Pt called to FU regarding her decision to start Remicade versus Humira, LMTCB. 12/27/22 Denies abd pain or wt loss like before. Completed prednisone taper end of November. Pt would like to resume mesalamine and monitor her symptoms for now and hold off on biologics for now FU in 8 weeks. Repeat labs on FU. Medications: New mesalamine (Lialda) 2.4 grams (2 x 1.2 gram) PO DAILY 180 tabs 1RF 90 days K51.90 - Ulcerative colitis, unspecified, without complications cholecalciferol (vitamin D3) 25 mcg PO DAILY 90 caps 1RF 90 days Coding Level of Care Code Est Pt Level 4 (37410) Diagnoses Ulcerative colitis K51.90 GERD (gastroesophageal reflux disease) K21.9 Time Spent (min) 26
[2022-12-27 07:58] VITALS: BP 92/59; PULSE 78; BMI 17.6
== END 2022-12-27 08:25 | disposition home or self-care (01) ==
PROVIDERS: PCP Internal Medicine; Visit Provider Internal Medicine Gastroenterology
DX: K51.90 Ulcerative colitis, unspecified, without complications (principal); K21.9 Gastro-esophageal reflux disease without esophagitis
CPT/HCPCS: 99499

== ENCOUNTER → 2022-12-27 07:40 | Outpatient (BNVA) | payer OTHER, SELFPAY | PROVIDERS: PCP Internal Medicine; Visit Provider Internal Medicine Gastroenterology ==

== ENCOUNTER 2023-03-04 08:31 | Outpatient (AMB) | payer OTHER, SELFPAY ==
--- NOTE | 2023-03-04 08:34 | A.OFFVIS_ITS ---
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 Scribed for EWELINA Reagan by Hope Mendoza medical center representative, on 03/04/2023 at 8:50 am EST. Uat Tester: Uat Tester Present (Margret) Allergies No Known Allergies [No Known Allergies*] Allergy (Verified 03/04/23 08:37) Post menopausal: Yes HPI HPI Comments History of Present Illness Details She is a postmenopausal woman presenting for annual exam. Reports colitis and is seeing GI specialist regarding GI issues and weight loss. Patient admits she tries to eat a healthy diet including Calcium and Vitamin D. She stays active with exercise. Currently sexually active. Denies vaginal discharge, odor, itching and irritation. STD screening offered; she declines. Denies family hx of breast, colon and ovarian cancer. Last pap smear 10/16/21. Last mammogram 10/25/21. UTD on colonoscopy. [facility] Medical History (Updated 03/04/23 @ 09:28 by Tea Herron CNM) ASCUS of cervix with negative high risk HPV Bilateral posterior neck pain Chronic right shoulder pain Erythema nodosum GERD (gastroesophageal reflux disease) Hx of abnormal cervical Pap smear Hx of iron deficiency Plantar fasciitis of left foot Shoulder pain, bilateral Sore throat Ulcerative colitis Vaccination declined Surgical History History of esophagogastroduodenoscopy Hx of colonoscopy Hx of sigmoidoscopy Hx of tubal ligation Family History Father HTN (hypertension) Diabetes Mother Leukemia Melanoma Paternal Grandmother Colon polyps Social History Household Members: Spouse Housing: House Alcohol intake: never Patient Tobacco Use Status: Never used Tobacco e-Cigarette/Vaping Use: Never Used service: No Current occupational status: employed 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 Sexual orientation: Straight/Heterosexual Gender identity: Female Cognitive needs: No Hearing needs: No Vision needs: No Female Reproductive History Menstrual control method: permanent sterilization Permanent Sterilization: BTL Menopause type: natural Total pregnancies: 3 Full term: 2 Number of Living Children: 2 Date of last pap smear: 10/16/21 (neg pap and hpv) History of abnormal pap smear: Yes (2015 +hpv 2017 ascus) Date of Mammogram: 10/25/21 Physical Exam Vital Signs: Last Vital Signs BP 96/56 L 03/04/23 08:35 BMI result Body Mass Index 17.9 Const General: cooperative, healthy appearing, no acute distress, well developed and alert Orientation/consciousness: patient oriented x3 HEENT Head: Yes normal to inspection Eyes General: appearance normal, both eyes and all related structures Neck Neck: Yes normal visual inspection Thyroid: Thyroid normal Chest Chest palpation & inspection: normal inspection of the chest Breast/axilla inspection: normal inspection of the breasts (no puckering, dimpling, peau de orange, retraction, discharge, masses) Breast/axilla palpation: normal palpation of the breasts Resp Effort & Inspection: normal respiratory effort GI Inspection: Yes normal to inspection Palpation (GI): Soft to palpation (to palpation) Rectal Exam - Female: deferred General: Yes bladder normal to inspection External Female Exam: normal external appearance and normal appearance of the urethra Speculum Exam - Vagina: normal appearance of the vagina, normal palpation and vagina atrophic Speculum Exam - Cervix: normal appearance of the cervix and normal palpation Bimanual exam- vagina & uterus: normal palpation and normal palpation Bimanual Exam- Adnexa, other: normal adnexae and no masses Skin General skin exam: no rashes or lesions noted Neuro General: patient oriented x3 Cognition (Neuro): normal cognition Extrem General: Yes normal to inspection Psych Attitude: cooperative Thought process: Normal thought process present Assessment & Plan Assessment & Plan (1) Encounter for well woman exam: Code(s): Z01.419 - Encounter for gynecological examination (general) (routine) without abnormal findings Plan: Discussed: Current recommendations for pap smears per ASCCP guidelines. Breast awareness and periodic self breast exams. Encouraged yearly mammograms. Maintaining a healthy lifestyle including a well balanced diet including Calcium and Vitamin D and routine exercise. Contact office with any PMB. All of her questions and concerns were addressed to the best of my ability. RTO in 1 year for AG. Orders: Orders MM tomosynthesis screening BI Today Z12.31 - Encounter for screening mammogram for malignant neoplasm of breast Coding Level of Care Code Est Pt Prev Care 40-64y(96652) Diagnoses Encounter for well woman exam Z01.419
[2023-03-04 08:35] VITALS: BP 96/56; BMI 17.9
== END 2023-03-04 08:57 | disposition home or self-care (01) ==
LOC: HO.HWS 08:31
PROVIDERS: PCP Internal Medicine; Visit Provider Advanced Practice Midwife
DX: Z01.419 Encounter for gynecological examination (general) (routine) without abnormal findings (principal)
CPT/HCPCS: 99396

== ENCOUNTER → 2023-03-04 08:31 | Outpatient (BNVA) | payer OTHER, SELFPAY | PROVIDERS: PCP Internal Medicine; Visit Provider Advanced Practice Midwife ==

== ENCOUNTER 2023-03-05 15:04 | Outpatient (AMB) | payer OTHER, SELFPAY ==
--- NOTE | 2023-03-05 16:05 | AM.OFFWIN_ITS ---
Intake Vital Signs 03/05/23 16:06 Height 5 ft 2 in Weight 98 lb BMI 17.9 BP 100/64 Blood Pressure Location Lt brachial Position Sitting Pulse 113 H Pulse Source Pulse Oximeter Temp 98.4 F Temp Source Temporal Artery Scan Pulse Oximetry (%) 97 Oxygen Delivery Method Room Air Intake Visit Reasons: Ep, Head congestion ([phone]) Intake Note: pt is here c/o head congestion x2 days Patient Tobacco Use Status: Never used Tobacco Allergies No Known Allergies [No Known Allergies*] Allergy (Verified 03/06/23 06:39) Do you need a note to return to daycare/school/sports/work: Yes HPI Ep, Head congestion ([phone]) HPI Details Patient presents for a sick visit. Reporting symptoms of sinus congestion, sore throat and difficulty swallowing. Low-grade fever. No family member is sick. No recent travel. Patient reports symptoms of malaise and fatigue. [facility] Medical History (Updated 03/06/23 @ 06:40 by Doug Hester MD) ASCUS of cervix with negative high risk HPV Bilateral posterior neck pain Chronic right shoulder pain Erythema nodosum GERD (gastroesophageal reflux disease) Hx of abnormal cervical Pap smear Hx of iron deficiency Plantar fasciitis of left foot Shoulder pain, bilateral Sore throat Ulcerative colitis Vaccination declined Surgical History History of esophagogastroduodenoscopy Hx of colonoscopy Hx of sigmoidoscopy Hx of tubal ligation Family History Father HTN (hypertension) Diabetes Mother Leukemia Melanoma Paternal Grandmother Colon polyps Social History Household Members: Spouse Housing: House Alcohol intake: never Patient Tobacco Use Status: Never used Tobacco e-Cigarette/Vaping Use: Never Used service: No Current occupational status: employed 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 Sexual orientation: Straight/Heterosexual Gender identity: Female Cognitive needs: No Hearing needs: No Vision needs: No Physical Exam Vital Signs: Last Vital Signs Temp 98.4 F 03/05/23 16:06 Pulse 113 H 03/05/23 16:06 BP 100/64 03/05/23 16:06 Pulse Ox 97 03/05/23 16:06 Oxygen Delivery Method Room Air 03/05/23 16:06 BMI result Body Mass Index 17.9 Const General: cooperative and healthy appearing Nutritional Appearance: well nourished Orientation/consciousness: patient oriented x3 Limitations: no limitations HEENT Head: Yes normal to inspection Eyes General: appearance normal, both eyes and all related structures Neck Neck: Yes normal visual inspection Chest Chest palpation & inspection: normal palpation of entire chest wall Resp Effort & Inspection: normal respiratory effort Neuro General: patient oriented x3 Assessment & Plan Assessment & Plan (1) Upper respiratory tract infection: Code(s): J06.9 - Acute upper respiratory infection, unspecified Plan: Antibiotics ordered. Increase fluid intake. Tylenol for aches and pains. If symptoms worsen, follow-up here for a recheck. Medications: New azithromycin take 500 mg today (day 1), then 250 mg for 4 days (days 2-5) PO 6 tabs 0RF Coding Level of Care Code Est Pt Level 3 (03856) Diagnoses Upper respiratory tract infection J06.9
[2023-03-05 16:06] VITALS: BP 100/64; PULSE 113; TEMP 36.9; O2SAT 97; BMI 17.9
== END 2023-03-05 16:31 | disposition home or self-care (01) ==
PROVIDERS: PCP Internal Medicine; Visit Provider Internal Medicine
DX: J06.9 Acute upper respiratory infection, unspecified (principal)
CPT/HCPCS: 99213

== ENCOUNTER 2023-03-12 14:01 | Outpatient (REF) | payer OTHER, SELFPAY ==
--- NOTE | ~2023-03-12 | MM_ITS ---
EXAMINATION: BONE DENSITOMETRY CLINICAL INDICATION: Asymptomatic menopausal state. COMPARISON: Baseline BD dated 05/26/2020. TECHNIQUE: Using a Android App Review Source DXA System (software version: 13.1) manufactured by [employer], dual-energy x-ray absorptiometry was performed of the lumbar spine and left hip. The images are of good technical quality. Summary results are attached. FINDINGS: AP SPINE L1-L4: Current: BMD 0.933 g/cm2, Z-score -0.8, T-score -2.1, osteopenia, 5.5% decrease from baseline (<5% change is not significant). Baseline: BMD 0.987 g/cm2. LEFT FEMUR, NECK: Current: BMD 0.621 g/cm2, Z-score -1.7, T-score -3.0, osteoporosis. Baseline: BMD 0.755 g/cm2. LEFT FEMUR, TOTAL: Current: BMD 0.672 g/cm2, Z-score -1.6, T-score -2.7, osteoporosis, 19.1% decrease from baseline (<5% change is not significant). Baseline: BMD 0.831 g/cm2. IDENTIFIED RISK FACTORS: Parental hip fracture. Secondary osteoporosis (intestinal or bowel disease). Menopause. HISTORY OF FRACTURE: None listed. MEDICATIONS: Calcium supplement and/or multivitamin. Vitamin D. MM/XR DEXA axial skeleton IMPRESSION: 1. DIAGNOSIS: Osteoporosis based on the lowest T-score value of -3.0 in the femoral neck applying World Health Organization criteria. 2. 10-YEAR FRACTURE RISK PREDICTION, FRAX: According to the guidelines, FRAX calculation should only be performed on patients in the osteopenia bone density category.?Therefore, FRAX was not performed on this patient.? 3. Treatment Recommendations: NOF guidelines recommend consideration for treatment in postmenopausal women and men age 50 and older presenting with the following: -A hip or vertebral (clinical or morphometric) fracture. -T-score less than or equal to -2.5 at the femoral neck or spine after appropriate evaluation to exclude secondary causes. -Low bone mass at the hip or spine and a 10-year fracture probability by FRAX of greater than or equal to 3% for hip fracture or greater than or equal to 20% for major osteoporotic fracture based on the [place] adapted WHO algorithm. 4. Other Recommendations: All treatment decisions require clinical judgment and consideration of individual patient factors, including patient preferences, comorbidities, previous drug use, risk factors not captured in the FRAX model (e.g. frailty, falls, vitamin D deficiency, increased bone turnover, interval significant decline in bone density) and possible under or overestimation of fracture risk by FRAX. Additional medical evaluation for secondary cause of low bone mineral density may be appropriate. FUTURE SCAN RECOMMENDATION: People with diagnosed cases of osteoporosis or at high risk for fracture should have regular bone mineral density tests. For patients eligible for Medicare, routine testing is allowed once every 2 years. The testing frequency can be increased to one year for patients who have rapidly progressing disease, those who are receiving or discontinuing medical therapy to restore bone mass, or have additional risk factors.
--- NOTE | ~2023-03-12 | MM_ITS ---
EXAMINATION: MM SCREENING DIGITAL BREAST TOMOSYNTHESIS, BILATERAL CLINICAL INFORMATION: Screening. Asymptomatic. COMPARISON: Mammography: This study is compared with prior exams dating back to 2018. TECHNIQUE: Digital breast tomosynthesis is performed in both the craniocaudal and mediolateral oblique views along with computer-aided detection (CAD). Synthesized 2D images are generated from the tomosynthesis. FINDINGS: The breasts are heterogeneously dense, which may obscure small masses (ACR BI-RADS breast composition Category c). There are no significant masses, abnormal calcifications, or other abnormalities. Scattered, benign calcifications are present in each breast. MM/MM tomosynthesis screening BI IMPRESSION: No mammographic evidence of malignancy. ASSESSMENT: BI-RADS BI-RADS 1 - Negative RECOMMENDATION: Routine annual mammography screening. 1 year F/U This examination should not preclude the clinical evaluation of a suspicious palpable abnormality. This patient's information was entered into a reminder system with a target due date for their next mammogram.
== END 2023-03-12 14:02 | disposition home or self-care (01) ==
LOC: HO.MAMMO 14:01
PROVIDERS: PCP Internal Medicine; Visit Provider Internal Medicine
DX: Z12.31 Encounter for screening mammogram for malignant neoplasm of breast (principal); Z13.820 Encounter for screening for osteoporosis; Z78.0 Asymptomatic menopausal state
CPT/HCPCS: 77063; 77067; 77080

== ENCOUNTER → 2023-03-12 14:30 | Outpatient (BNV) | payer OTHER, SELFPAY | PROVIDERS: PCP Internal Medicine; Visit Provider Radiology Diagnostic Radiology | DX: Z12.31 Encounter for screening mammogram for malignant neoplasm of breast (principal) | CPT/HCPCS: 77063; 77067; 77080 ==

== ENCOUNTER 2023-06-17 10:45 | Emergency (ER) | payer OTHER, SELFPAY ==
--- NOTE | ~2023-06-17 | XR_ITS ---
EXAMINATION: XR CHEST 2 VIEW CLINICAL INFORMATION: Chest pain COMPARISON: 05/26/2019 TECHNIQUE: PA and lateral views of the chest obtained. FINDINGS: The lungs are clear. There are no pleural effusions. The cardiomediastinal silhouette is normal. XR/XR chest 2V IMPRESSION: No acute cardiopulmonary disease.
--- NOTE | 2023-06-17 10:58 | ECG_ITS ---
Test Reason : cp Blood Pressure : / mmHG Vent. Rate : 072 BPM Atrial Rate : 072 BPM P-R Int : 118 ms QRS Dur : 082 ms QT Int : 408 ms P-R-T Axes : 011 069 048 degrees QTc Int : 446 ms Normal sinus rhythm Minimal voltage criteria for LVH, may be normal variant ( Sokolow-Lo ) Borderline ECG When compared with ECG of 10-SEP-2021 17:08, No significant change was found Referred By: Generic ED Physician Electronically Signed By:Karsten Perez
[2023-06-17 11:29] VITALS: BP 125/79; PULSE 74; RESP 18; TEMP 36.6; O2SAT 99; BMI 17.4
[2023-06-17 12:21] LABS: MANUAL DIFF FLAG NO
[2023-06-17 12:26] LABS: Basophils Percent Auto 0.7 % (0-2); Eosinophils Absolute Auto 0.3 X10*3/uL (0.0-0.4); Eosinophils Percent Auto 4.5 % (0-4); Hematocrit 41.5 % (37.0-47.0); Hemoglobin 13.1 g/dl (12.0-16.0); Imm Gran Abs Auto 0.02 X10*3/uL (0.00-0.03); Imm Gran Pct Auto 0.4 % (0.0-0.4); Lymphocytes Absolute Auto 2.1 X10*3/uL (1.2-4.9); Lymphocytes Percent Auto 38.5 % (20-40); Mean Corpuscular HGB Conc 31.6 g/dl (31.0-35.0); Mean Corpuscular Hemoglobin 26.5 pg (27.0-33.0); Mean Corpuscular Volume 83.8 fL (80.0-98.0); Mean Platelet Volume 8.7 fL (9.4-12.3); Monocytes Absolute Auto 0.6 X10*3/uL (0.1-1.2); Monocytes Percent Auto 9.9 % (2-11); Neutrophils Absolute Auto 2.5 x10*3/uL (2.0-8.3); Platelet Count 326 X10*3/uL (160-400); Red Blood Count 4.95 X10*6/uL (4.20-5.50); Red Cell Distribution Width 14.4 % (11.0-16.0); White Blood Count 5.5 X10*3/uL (4.8-10.8)
[2023-06-17 12:37] LABS: Anion Gap 9 (12-20); Blood Urea Nitrogen 6 mg/dL (9-16); Calcium 9.7 mg/dL (8.4-10.2); Carbon Dioxide 31 mmol/L (22-29); Chloride 107 mmol/L (96-108); Creatinine Clr Calc Pharmacy 70.2; Estimated Glomerular Filt Rate > 60; Glucose Random 92 mg/dL (60-115); Sodium 143 mmol/L (135-145)
[2023-06-17 12:45] LABS: Troponin-I High Sensitivity < 2.7 ng/L (<3.5-17.0)
[2023-06-17 12:52] LABS: COVID-19 Test Negative (Negative); IDNOW Serial# 08D9AD1C
--- NOTE | 2023-06-17 18:16 | ED_ITS ---
HPI - Chest Pain General Chief Complaint: Chest Pain Stated Complaint: Chest pain Time Seen by Provider: 06/17/23 18:15 Source: patient Mode of arrival: ambulatory Limitations: no limitations History of Present Illness HPI narrative: 53 yo female with PMH of GERD, UC, IBS, erythema nodosum here with c/o sharp intermittent wandering L side chest pain this AM that has resolved started at 7am today - felt mildly short of breath it did resolve. She feels fine now. Has no hx of CAD, no recent travel or procedures, no leg pain or swelling. No hx of VTE inteh past. Did get her flu shot recently complaint: chest pain Onset (ago): hour(s) (7am) Timing of current episode: now resolved Prior episodes: No Onset: during rest Pain location: left chest Pain radiation: none Severity: mild Quality: sharp Relieving factors: nothing Exacerbating factors: nothing Associated symptoms: dyspnea Treatment prior to arrival: none Related Data Home Medications Medication Instructions Recorded Confirmed multivitamin 1 tab PO DAILY 10/16/21 12/27/22 metronidazole 0.75 % lotion topical BID 12/27/22 12/27/22 hydrocortisone 100 mg/60 mL enema mg GA 03/04/23 Previous Rx's Medication Instructions Recorded cholecalciferol (vitamin D3) 25 25 mcg PO DAILY 90 days #90 caps 12/27/22 mcg (1,000 unit) capsule mesalamine 1.2 gram tablet,delayed 2.4 g (2 x 1.2 gram) PO DAILY 90 12/27/22 release (Lialda) days #180 tabs azithromycin 250 mg tablet See Rx Instructions PO .COMPLEX #6 03/05/23 tabs Allergies Allergy/AdvReac Type Severity Reaction Status Date / Time No Known Allergies Allergy Verified 06/17/23 11:28 [No Known Allergies*] Review of Systems 2 Review of Systems: Constitutional : No Weight loss, No Fever, No Chills ENT/Mouth : No sore throat, No Rhinorrhea Eyes: No Eye Pain, No Swelling Cardiovascular : pos Chest Pain, pos SOB, no Dyspnea on Exertion, No Orthopnea, No Edema, No Palpitations Respiratory : No Cough, No Sputum Gastrointestinal : no Nausea, No Vomiting, No Diarrhea, No abdominal Pain, No Hematochezia, No Melena Genitourinary : No Dysuria, No Urinary Frequency Musculoskeletal : No joint pain, No Myalgias, No Joint Swelling Skin : No Skin Lesions, No rash Neuro : No Weakness, No Numbness, No Dizziness, No Headache Psych : No Anxiety/Panic, No Depression Heme/Lymph: No Bruising, No Lymphadenopathy Endocrine : No Polyuria, No Polydipsia All other systems reviewed and are negative [facility] Past Medical History Medical History (Updated 06/17/23 @ 18:38 by Jennifer Abreu DO) Plantar fasciitis of left foot Vaccination declined Erythema nodosum Sore throat Hx of abnormal cervical Pap smear Chronic right shoulder pain Shoulder pain, bilateral Bilateral posterior neck pain ASCUS of cervix with negative high risk HPV Hx of iron deficiency GERD (gastroesophageal reflux disease) Ulcerative colitis Surgical History Hx of sigmoidoscopy History of esophagogastroduodenoscopy Hx of tubal ligation Hx of colonoscopy Family History Family History Father HTN (hypertension) Diabetes Mother Leukemia Melanoma Paternal Grandmother Colon polyps Social History Social History Household Members: Spouse Housing: House Alcohol intake: never Patient Tobacco Use Status: Never used Tobacco e-Cigarette/Vaping Use: Never Used Advance Directives: No Advance Directives Information Provided: No service: No Current occupational status: employed 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 Oriented X3. No acute distress. Eyes: Pupils equal, round and reactive to light. ENT: Pharynx normal. Neck: Normal inspection. Neck supple. CVS: Normal heart rate and rhythm. Pulses normal. Respiratory: No respiratory distress. Breath sounds normal. Abdomen: Soft and nontender. Skin: Skin warm and dry. Normal skin color. Normal skin turgor. Extremities: No lower extremity edema. No calf ttp Neuro: Oriented X 3. No motor deficit. No sensory deficit. Medical Decision Making Medical Decision Making [facility] Narrative: 53 yo female with PMH of GERD, UC, IBS, erythema nodosum here with c/o intermittent L sided sharp chest pain but has no risk factors for VTE and is well score 0 at this time no ACS risk factors - will obtain EKG and trop x 1 given onset 5 hours ago, COVID test. Pulses intact and no pain at this time doubt dissection. Stable for DC at this time. Differential Diagnosis Differential Diagnoses: The differential diagnosis associated with the presentation includes atypical chest pain, MSK Wells score O doubt VTE Admission/Observation Consideration of admission/observation: Escalation of care including admission/observation considered not toxic, negative work up stable for DC Lab Data [facility] Lab Attestation statement: I reviewed the patient's lab results. 06/17/23 12:16 12 12:16 Labs: Lab Results 06/17/23 Range/Units 12:16 WBC 5.5 (4.8-10.8) X10*3/uL RBC 4.95 (4.20-5.50) X10*6/uL Hgb 13.1 (12.0-16.0) g/dl Hct 41.5 (37.0-47.0) % MCV 83.8 (80.0-98.0) fL MCH 26.5 L (27.0-33.0) pg MCHC 31.6 (31.0-35.0) g/dl RDW 14.4 (11.0-16.0) % Plt Count 326 (160-400) X10*3/uL MPV 8.7 L (9.4-12.3) fL Immature Gran % (Auto) 0.4 (0.0-0.4) % Neut % (Auto) 46.0 (45-73) % Lymph % (Auto) 38.5 (20-40) % [place] % (Auto) 9.9 (2-11) % Eos % (Auto) 4.5 H (0-4) % Baso % (Auto) 0.7 (0-2) % Lymph # (Auto) 2.1 (1.2-4.9) X10*3/uL [place] # (Auto) 0.6 (0.1-1.2) X10*3/uL Eos # (Auto) 0.3 (0.0-0.4) X10*3/uL Baso # (Auto) 0.0 (0.0-0.2) X10*3/uL Abs Immat Gran (auto) 0.02 (0.00-0.03) X10*3/uL Absolute Neuts (auto) 2.5 (2.0-8.3) x10*3/uL Absolute Nucleated RBC 0.000 (0.0-0.012) X10*3/uL Nucleated RBC % (auto) 0.0 (0.0-0.2) /100WBC Sodium 143 (135-145) mmol/L Potassium 4.0 (3.3-5.1) mmol/L Chloride 107 (96-108) mmol/L Carbon Dioxide 31 H (22-29) mmol/L Anion Gap 9 L (12-20) BUN 6 L (9-16) mg/dL Creatinine 0.63 (0.5-1.4) mg/dL Estim Creat Clear Calc 70.2 Estimated GFR > 60 Random Glucose 92 (60-115) mg/dL Calcium 9.7 (8.4-10.2) mg/dL Troponin I High Sens < 2.7 (<3.5-17.0) ng/L COVID-19 ([facility]) Negative (Negative) COVID-19 Clin Com See Note Independent Interpretation I performed an independent interpretation of an: EKG and Plain X-Ray (normal ) Interpretation: Rate: 72 Rhythm: NSR [place]: normal , LVH Normal P waves. Normal JAN. Normal QRS complex. ST T wave : normal no JANET qTC: normal prior studies: no acute ischemia The study has been interpreted contemporaneously by me. . Radiology Impression Discussion of test interpretation with radiology: I have reviewed the radiologist's reading. Independent Historian Clinical information obtained from an independent historian. History obtained from or confirmed by: Other External Record Review External record reviewed: Office record Discharge Plan Discharge Clinical Impression: Atypical chest pain Patient Disposition: Home, Self-Care Instructions: Chest Pain (ED) Additional Instructions: return for worsening pain, fevers, vomiting, difficulty breathing or any other concerns. talk to your doctor about getting a stress test. your COVID was negative Prescriptions: No Action azithromycin 250 mg tablet See Rx Instructions PO .COMPLEX Qty: 6 0RF Rx Instructions: take 500 mg today (day 1), then 250 mg for 4 days (days 2-5) PO metronidazole 0.75 % lotion topical BID multivitamin Tablet 1 tab PO DAILY hydrocortisone 100 mg/60 mL enema GA mesalamine [Lialda] 1.2 gram tablet,delayed release (DR/EC) 2.4 g PO DAILY 90 Days Qty: 180 1RF cholecalciferol (vitamin D3) 25 mcg (1,000 unit) capsule 25 mcg PO DAILY 90 Days Qty: 90 1RF
[2023-06-17 19:10] VITALS: BP 107/60; PULSE 72; RESP 18; TEMP 37; O2SAT 100
== END 2023-06-17 19:12 | disposition home or self-care (01) ==
PROVIDERS: Emergency Provider Emergency Medicine; PCP Physician Assistant
DX: R07.89 Other chest pain (principal); Z79.899 Other long term (current) drug therapy; Z11.52 Encounter for screening for COVID-19; Z20.822 Contact with and (suspected) exposure to COVID-19
CPT/HCPCS: 71046; 80048; 84484; 85025; 87635; 93005; 99283; 99284

== ENCOUNTER → 2023-06-17 10:58 | Outpatient (BNV) | payer OTHER, SELFPAY | PROVIDERS: PCP Physician Assistant; Visit Provider Internal Medicine Cardiovascular Disease | DX: R07.9 Chest pain, unspecified (principal) | CPT/HCPCS: 93010 ==

== ENCOUNTER 2024-03-17 13:47 | Outpatient (REF) | payer OTHER, SELFPAY ==
--- NOTE | ~2024-03-17 | MM_ITS ---
EXAMINATION: MM SCREENING DIGITAL BREAST TOMOSYNTHESIS, BILATERAL CLINICAL INFORMATION: Screening. Asymptomatic. COMPARISON: Mammography: Comparison is made with available priors TECHNIQUE: Digital breast mammography with tomosynthesis is performed in both the craniocaudal and mediolateral oblique views along with computer-aided detection (CAD). FINDINGS: The breasts are heterogeneously dense, which may obscure small masses (ACR BI-RADS breast composition Category c). There are no significant masses, abnormal calcifications, or other abnormalities. MM/MM tomosynthesis screening BI IMPRESSION: No mammographic evidence of malignancy. ASSESSMENT: BI-RADS BI-RADS 1 - Negative RECOMMENDATION: Routine annual mammography screening. 1 year F/U This examination should not preclude the clinical evaluation of a suspicious palpable abnormality. This patient's information was entered into a reminder system with a target due date for their next mammogram. Electronically signed by: Prema Padilla DO 03/31/2024 10:56 AM EDT
== END 2024-03-17 13:48 | disposition home or self-care (01) ==
LOC: HO.MAMMO 13:47
PROVIDERS: PCP Family Medicine; Visit Provider Internal Medicine
DX: Z12.31 Encounter for screening mammogram for malignant neoplasm of breast (principal)
CPT/HCPCS: 77063; 77067

== ENCOUNTER → 2024-03-17 14:00 | Outpatient (BNV) | payer OTHER, SELFPAY | PROVIDERS: PCP Family Medicine; Visit Provider Internal Medicine | DX: Z12.31 Encounter for screening mammogram for malignant neoplasm of breast (principal) | CPT/HCPCS: 77063; 77067 ==

== ENCOUNTER 2025-03-22 13:40 | Outpatient (REF) | payer OTHER, SELFPAY ==
--- NOTE | ~2025-03-22 | MM_ITS ---
EXAMINATION: MM SCREENING DIGITAL BREAST TOMOSYNTHESIS, BILATERAL CLINICAL INFORMATION: Screening. Asymptomatic. COMPARISON: Mammography: Comparison is made with available priors TECHNIQUE: Digital breast mammography with tomosynthesis is performed in both the craniocaudal and mediolateral oblique views along with computer-aided detection (CAD). FINDINGS: The breasts are heterogeneously dense, which may obscure small masses (ACR BI-RADS breast composition Category c). There are no significant masses, abnormal calcifications, or other abnormalities. MM/MM tomosynthesis screening BI IMPRESSION: No mammographic evidence of malignancy. ASSESSMENT: BI-RADS BI-RADS 1 - Negative RECOMMENDATION: Routine annual mammography screening. 1 year F/U This examination should not preclude the clinical evaluation of a suspicious palpable abnormality. This patient's information was entered into a reminder system with a target due date for their next mammogram. Electronically signed by: Prema Padilla DO 03/25/2025 02:28 PM EDT
--- OUTSIDE RECORDS SUMMARY | 2025-03-22 17:33 | XMS_ITS | Clinical Summary ---
Author Organization [facility] ity Address [address] [place] [address] Care Team Providers Care Certified Medical Technician Assistant Name Role Phone Unavailable Primary Care Provider Unavailabl e Social History Tobacco Use Types Packs/Day Years Used Date Smoking Tobacco: Never Assessed Comments Unknown Sex and Gender Information Value Date Recorded Sex Assigned at Not on file Legal Sex Female 9:50 AM EST Gender Identity Not on file Sexual Orientation Not on file Plan of Treatment Health Maintenance Due Date Last Done Comments Breast Cancer Screening 1970 DTaP,Tdap,and Td Vaccines (1 - Tdap) 1989 Hepatitis B Vaccines (1 of 3 - 19+ 3-dose series) 1989 Cervical Cancer Screening: P ap Smear 1991 Pneumococcal Vaccine: 50+ Ye ars (1 of 1 - PCV) 2020 Zoster Vaccines (1 of 2) 2020 Colorectal Cancer Screening: Colonoscopy 08/05/2023 HIV Screening 08/05/2023 Hepatitis C Screening 08/05/2023 Social Influencers of Health Screening 08/05/2023 Depression Screening 07/07/2024 COVID-19 Vaccine ( - 2023-2 5 season) 2025 Influenza Vaccine (#1) 2025 HIB Vaccines Aged Out No longer eligi ble based on patient's age to complete this topic HPV Vaccines Aged Out No longer eligi ble based on patient's age to complete this topic Hepatitis A Vaccines Aged Out No long er eligible based on patient's age to complete this topic IPV Vaccines Aged Out No longer eligi ble based on patient's age to complete this topic MMR Vaccines Aged Out No longer eligi ble based on patient's age to complete this topic Meningococcal ACWY Vaccine Aged Out N o longer eligible based on patient's age to complete this topic Meningococcal B Vaccine Aged Out No l onger eligible based on patient's age to complete this topic RSV Immunization Patients Un marli 20 months Aged Out No longer eligible b ased on patient's age to complete this topic Varicella Vaccines Aged Out No longer eligible based on patient's age to complete this topic
== END 2025-03-22 13:41 | disposition home or self-care (01) ==
LOC: HO.MAMMO 13:40
PROVIDERS: PCP Physician Assistant; Visit Provider Family Medicine
DX: Z12.31 Encounter for screening mammogram for malignant neoplasm of breast (principal)
CPT/HCPCS: 77063; 77067

== ENCOUNTER → 2025-03-22 14:00 | Outpatient (BNV) | payer OTHER, SELFPAY | PROVIDERS: PCP Physician Assistant; Visit Provider Internal Medicine | DX: Z12.31 Encounter for screening mammogram for malignant neoplasm of breast (principal) | CPT/HCPCS: 77063; 77067 ==